=== PATIENT | male | born 1955 | race Two or more races ===

== ENCOUNTER 2019-04-05 00:52 | Inpatient (IN) | payer OTHER ==
[~2019-04-05] VITALS: Ht 167.6 cm; Wt 107.0 kg
[2019-04-05] VITALS (13 sets, daily range): BP systolic 131–164; BP diastolic 72–117
--- NOTE | 2019-04-05 01:05 | NUR ---
PT VICTORIA FROM HOME FOR ALOC; PT VERBALLY RESPONSIVE, PT ON MONITOR, VSS, PENDING MD JONES
[2019-04-05] MEDS ORDERED: ASPI-1169 PO (01:13)
[2019-04-05] MEDS ORDERED: ATOR40TA GT (01:18)
[2019-04-05] MEDS ORDERED: AMIO200T4 PO (01:18)
[2019-04-05] MEDS ORDERED: LEVO25TA7 PO (01:18)
[2019-04-05] MEDS ORDERED: HYDR-4384 PO (01:18)
[2019-04-05] MEDS ORDERED: DOCU100C36 PO (01:18)
[2019-04-05 01:19] LABS: BASOPHILS % (AUTO) 0.4 % (0.0-2.0); EOSINOPHILS % (AUTO) 1.2 % (0.0-6.0); HEMATOCRIT 30 % (39-51); HEMOGLOBIN 10.3 g/dL (13.5-17.5); LYMPHOCYTES # (AUTO) 0.9 /CMM (0.8-4.8); LYMPHOCYTES % (AUTO) 9.9 % (20.0-44.0); MEAN CORPUSCULAR HGB CONC 35 g/dl (31.0-36.0); MEAN CORPUSCULAR VOLUME 92 fL (80-96); MONOCYTES # (AUTO) 1.1 /CMM (0.1-1.30); MONOCYTES % (AUTO) 11.4 % (2.0-12.0); NEUTROPHILS # (AUTO) 7.1 /CMM (1.8-8.9); NEUTROPHILS % (AUTO) 77.1 % (43.0-81.0); PLATELET COUNT (AUTO) 456 /CMM (150-450); RED BLOOD CELL COUNT(AUTO) 3.27 MIL/uL (4.5-6.0); WHITE BLOOD COUNT (AUTO) 9.2 K/uL (4.3-11.0)
[2019-04-05 01:27] LABS: CALCIUM, SERUM 8.8 mg/dL (8.5-10.1); CREATININE 1.2 mg/dL (0.6-1.3); POTASSIUM 4.3 mmol/L (3.5-5.1)
[2019-04-05] MEDS ORDERED: IV NS 0.9% 500 ML BAG IV ONE (01:30)
[2019-04-05 01:33] LABS: ALBUMIN 3.3 g/dL (3.4-5.0); BILIRUBIN,DIRECT 0.1 mg/dL (0.0-0.2); BILIRUBIN,TOTAL 0.6 mg/dL (0.2-1.0); TOTAL PROTEIN, SERUM 6.8 g/dL (6.4-8.2)
[2019-04-05] MEDS ORDERED: AMIODARONE 150 MG/3 ML VIAL IV ONE ×2 (02:19→02:30)
--- NOTE | 2019-04-05 03:40 | NUR ---
NURSING SUP GAVE BED 113-1.
[2019-04-05] MEDS ORDERED: CEFTRIAXONE 1 G in IV D5W 50 ML IV STA (03:45)
--- NOTE | 2019-04-05 03:48 | NUR ---
UNABLE TO COLLECT URINE AT THIS TIME, AWARE.
--- NOTE | 2019-04-05 03:54 | NUR ---
REPORT GIVEN TO TIMOTHY SERRANO FOR SHARONA; PT WILL BE TRANSPORTED TO 1ST FLOOR VIA ACLS PROTOCOL
[2019-04-05] MEDS ORDERED: CEFTRIAXONE 1GM BAG (ER ONLY) 50 ML IV ONE (03:55)
[2019-04-05] MEDS ORDERED: MAGNESIUM HYDROXIDE 30 ML UDC PO PRN (04:00)
[2019-04-05] MEDS ORDERED: HYDROCODONE/APAP 5/325MG 1 EACH TABLET PO PRN (04:00)
[2019-04-05] MEDS ORDERED: ZOLPIDEM TARTRATE 5 MG TABLET PO PRN (04:00)
[2019-04-05] MEDS ORDERED: MAG HYDROX/AL HYDROX/SIMETH 30 ML UDC PO PRN (04:00)
[2019-04-05] MEDS ORDERED: ONDANSETRON HCL/PF 4 MG/2 ML VIAL IVP PRN (04:00)
[2019-04-05] MEDS ORDERED: ACETAMINOPHEN 325 MG TABLET PO PRN (04:00)
[2019-04-05] MEDS ORDERED: Z GUARD REMEDY 2 OZ OINT TP PRN (04:00)
--- NOTE | 2019-04-05 04:40 | NUR ---
PRODUCTION LINE ASSEMBLER ADMISSION NOTES, AT 0415 RECEIVED 63 MALE ADMITTED FROM ER VIA STRETCHER IN COMPANY OF 2 NURSES AND , ADMITTED UNDER DR ANDRADE, WITH ADMITTING DX AFIB AND ELEVATED CARDIAC ENZYMES, S/P CABG 2 WEEKS AGO, PATIENT A/O X2, USUALLY X4 PER , H/O HYPOTHYROIDISM, AFIB IN TELE MONITOR VS AT THIS TIME, 145/104, 116, 98.9, 18, 95% ROOM AIR, STATES NAME AND DATE OF [facility], DENIES CHEST PAIN OR DISCOMFORT AT AT THIS TIME, BREATHING EVEN AND UNLABORED, NO SOB./ACUTE DISTRESS AT THIS TIME, AT BEDSIDE, CALL LIGHT W/I REACH, WILL CONTINUE TO MONITOR CLOSELY, S/R OF BED UP. IV RIGHT AC 18, AND INSERTED AT NEW LINE IN RIGHT HAND 22G BOTH PATENT AND INTATC, WILL F/U WITH MD FOR FURTHER ORDERS.
[2019-04-05] MEDS ORDERED: LEVOFLOXACIN 500 MG /D5W 100ML 100 ML IV ONE (04:52)
[2019-04-05] MEDS: LEVOFLOXACIN 500 MG /D5W 100ML 500 MG in PREMIX 1 EA IV SCH (05:02)
--- NOTE | 2019-04-05 05:18 | NUR ---
RN SPOKE TO AT BEDSIDE, REVIEWED HOME MEDS LIST, COREG MISSED BY ER NURSE, MD SOMMER MADE AWARE, MD WITH NEW ORDER TO GIVE NOW FIRST DOSE OF COREG AND CONTINUE ORDERED. OK TO GIVE PO MEDICATION EVEN PT IS NPO PER MD.
[2019-04-05] MEDS: CARVEDILOL 6.25 MG TABLET PO SCH ×4 (05:22→21:24)
[2019-04-05] MEDS ORDERED: CARV6.25 PO (05:27)
[2019-04-05] MEDS: DOCUSATE SODIUM 100 MG CAPSULE PO SCH ×2 (06:34→21:24)
--- NOTE | 2019-04-05 07:00 | NUR ---
PATIENT SLEEPING AT THIS TIME, BUT RESPOND TO NAME, BREATHING EVEN AND UNLABORED, NO S/S OF ANY SOB/ACUTE DISTRESS OR DISCOMFORT, AT BEDSIDE, CONTINUE AFIB UNCONTROL IN THE TELE MONITOR, CALL LIGHT W/I REACH, WILL ENDORSE CONTINUITY OF CARE TO ONCOMING NURSE.
--- NOTE | 2019-04-05 07:15 | NUR ---
RN OPENING NOTES PATIENT IN BED ASLEEP, EASILY AROUSABLE BY NAME. AT BEDSIDE. NO URINE OUTPUT LAST NIGHT PER NOC SHIFT, NO BM WELL. HAS GENERALIZED EDEMA. ON TELE MONITOR, AFIB HR 110-120s. PATIENT IS NPO EXCEPT MEDS. HAS A RIGHT AC #20 AND RIGHT HAND #22, BOTH SALINE LOCKED. TROPONIN LEVEL IS STILL ELEVATED, 0.648. BED LOCKED AND IN LOWEST POSITION, CALL LIGHT WITHIN REACH. WILL CONTINUE TO MONITOR
[2019-04-05] MEDS: LEVOTHYROXINE SODIUM 25 MCG TABLET PO SCH ×2 (08:04→09:37)
[2019-04-05] MEDS: ASPIRIN 81 MG TAB.CHEW PO SCH ×2 (08:04→09:35)
[2019-04-05] MEDS: PANTOPRAZOLE 40 MG TABLET.DR PO SCH ×2 (08:04→09:34)
[2019-04-05] MEDS: ATORVASTATIN 40 MG TABLET GT SCH ×2 (08:04→09:35)
[2019-04-05] MEDS: AMIODARONE HCL 200 MG TABLET PO SCH ×2 (08:05→09:36)
--- NOTE | 2019-04-05 08:16 | NUR ---
RN NOTES PATIENT IS VERY LETHARGIC TO TAKE PO MEDS. HE IS RESPONSIVE AND WANTS ME TO COME BACK LATER. WILL TRY AGAIN LATER
--- NOTE | 2019-04-05 11:25 | NUR ---
RN NOTES AT BEDSIDE, CONCERNED THAT PATIENT HAS NOT BEEN URINATING SINCE ADMISSION LAST NIGHT. PATIENT HAS BEEN NPO AND NOT DRINKING ANY FLUIDS. CHECKED BLADDER VIA BLADDER SCAN, 38 ML. PATIENT STATES THAT HE DOES NOT FEEL THE URGE TO URINATE
[2019-04-05 12:09] LABS: MAGNESIUM 1.8 mg/dL (1.8-2.4); PHOSPHORUS 4.6 mg/dL (2.5-4.9)
--- NOTE | 2019-04-05 12:30 | NUR ---
RN NOTES PATIENT VERY LETHARGIC TO TAKE PO MEDS AT THIS TIME. MD AWARE. HE SAID TO HOLD MEDS FOR NOW.
[2019-04-05] MEDS: DILTIAZEM HCL CD 240 MG PO SCH ×2 (12:39→19:22)
[2019-04-05] MEDS: DIGOXIN 0.25 MG TABLET PO SCH ×2 (13:04→19:24)
--- NOTE | 2019-04-05 13:23 | NUR ---
RN NOTES DR ZENDEJAS AT BEDSIDE, AT BEDSIDE, TO CONTROL AFIB, MD RECOMMENDS ANTICOAGULANTS SUCH ASPIRIN AND LOVENOX. WILL NOT INCREASE AMIO AND DIG FOR RATE CONTROL. DR ZENDEJAS ORDERED EKG AND ECHO, AWARE. PATIENT STILL LETHARGIC AND WEAK
--- NOTE | 2019-04-05 15:30 | NUR ---
RN NOTES PATIENT WAS AWAKE, AND TALKING. TRIED TO ADMINISTER DIG AND AMIO PO. PATIENT WENT BACK TO SLEEP. WILL COME BACK LATER
[2019-04-05] MEDS: ENOXAPARIN SODIUM 120 MG/0.8 ML DISP.SYRIN SQ SCH ×2 (17:15→21:27)
--- NOTE | 2019-04-05 17:22 | NUR ---
RN NOTES AT BEDSIDE WAS WORRIED ABOUT THE PATIENT NOT HAVING URINE OUTPUT SINCE LAST NIGHT. KATHLEEN ORDERED 500ML IVF NS BOLUS. WILL CONTINUE TO MONITOR
[2019-04-05] MEDS ORDERED: IV NS 0.9% 500 ML IV ONE (17:30)
[2019-04-05 18:09] LABS: ABG BASE EXCESS -1.4 mmol/L; ABG OXYGEN SATURATION 97.2 % (92.0-98.5); ABG PCO2 33.4 mmHg (35.0-45.0); ABG PH 7.441 (7.350-7.450); ABG PO2 107.9 mmHg (75.0-100.0); AaDO2 52.3 mmHg; COHb 0.3 % (0.5-1.5); MetHb 0.6 % (0.0-1.5); O2Hb 96.3 % (94.0-97.0); SITE, ABG Right Radial; VENT MODE, BG NC 2L
--- NOTE | 2019-04-05 18:20 | NUR ---
RN NOTES KATHLEEN ORDERED AN MRI TODAY. DR HARVEY CAME TO SEE THE PATIENT AND DECIDED TO SEND THE PATIENT TO ICU FOR CLOSER OBSERVATION. AT BEDSIDE AWARE. TRANSFERRED TO ICU, VSS. NO ACUTE STRESS, NOR SOB. REPORT GIVEN AT BEDSIDE TO ICU NURSE.
--- NOTE | 2019-04-05 18:30 | NUR ---
RECEIVED PATIENT FROM TELE UNIT PER ORDERS FOR CLOSE NEURO OBSERVATION. PATIENT ADMITTED WITH AFIB RVR AND ALTERED LEVEL OF CONSCIOUSNESS. AFIB NOTED ON MONITOR; PER RN DID NOT GIVE CARDIZEM OR DIG PO PATIENT ALTERED; MESSAGE WITH DR ZENDEJAS TO F/U IF WANTED ANY IV ORDERS. AT THIS TIME HR 120'S-130'S. INMAN CATH INSERTED BLADDER SCANNER SHOWING MORE THAN 500ML IN BLADDER AND PER RN NO URINE OUTPUT SINCE ADMISSION. INMAN INSERTED WITH STERILE PROCEDURE AND URINE SAMPLE OBTAINED PER MD ORDER. PATIENT NON VERBAL WILL NOT OPEN EYES TO PAINFUL STIMULI. AT BEDSIDE. SAFETY, SKIN, ASPIRATION PRECAUTIONS IN PLACE AND WILL MONITOR.
--- NOTE | 2019-04-05 18:45 | NUR ---
PATIENT PASSED SWALLOW EVAL WITHOUT COMPLICATIONS. PO MEDICATIONS GIVEN
--- NOTE | 2019-04-05 19:02 | NUR ---
AT BEDSIDE. PER PATIENT HAD STARTED TO ACT STRANGE LATE FRIDAY. GENERALIZED HALLUCINATIONS, ACTING STRANGE LIKE THROWING TOILET PAPER ON FLOOR AND AT TIMES ANSWERING QUESTIONS "STRANGELY". PER SHE IS CONCERNED ABOUT A PSYCHOTIC BREAK BY THE WAY HE IS ACTING THIS IS VERY SIMILAR TO HIS MOTHER WHO HAD PSYCHOSIS. PATIENT IS NOW OPENING EYES INDEPENDENTLY 4MM REACTIVE TO LIGHT AND PATIENT A/OX4 LETHARGIC HOWEVER SOME ANSWERS ARE NOT IN RELATION TO QUESTIONS ASKED. PER NO NEW MEDICATIONS WERE STARTED AND NOTHING HE COULD OF TAKEN.
[2019-04-05] MEDS: ACETAMINOPHEN 650 MG/SUPP.RECT RC PRN (19:07)
[2019-04-05 19:18] LABS: APPEARANCE,URINE SL CLOUDY (CLEAR); BILIRUBIN,URINE 1+ (NEGATIVE); BLOOD, URINE NEGATIVE Ery/uL (NEGATIVE); COLOR,URINE ORANGE (YELLOW); KETONES,URINE 1+ (NEGATIVE); LEUKOCYTE ESTERASE ,URINE NEGATIVE (NEGATIVE); NITRITE, URINE NEGATIVE (NEGATIVE); PH,URINE 5.5 (5.0-8.0); PROTEIN,URINE TRACE mg/dl (NEGATIVE); UGLUCOSE NEGATIVE (NEGATIVE); UROBILINOGEN,URINE 0.2 EU/dL (0.2)
--- NOTE | 2019-04-05 19:20 | NUR ---
CARE ENDORSED TO RN FOR SHARONA. PATIENT TOLERATED PO MEDICATIONS. SAFETY, SKIN, ASPIRATION PRECAUTIONS IN PLACE.
[2019-04-05] MEDS ORDERED: ENOXAPARIN SODIUM 60 MG/0.6 ML DISP.SYRIN SQ ONE (21:26)
--- NOTE | 2019-04-05 21:29 | NUR ---
RN LOVENOX 120 DUE AT 2100 NOT AVAILABLE AT [facility], ADELINA, CHARGE [facility] OVERRIDED FROM [facility] LOVENOX 60 X2, VERIFIED DOSE AND MEDICATION PRIOR ADMIN BY MAGGIE MCHUGH.
[2019-04-05 21:56] LABS: BACTERIA,URINE Few /HPF (None Seen); RBC,URINE 0-2 /HPF (0-2); SQUAMOUS EPITHELIAL CELL,UR Few /HPF (None Seen); WBC,URINE 0-2 /HPF (0-3)
[2019-04-06] VITALS (32 sets, daily range): BP systolic 109–185; BP diastolic 77–117
[2019-04-06] MEDS: LEVOFLOXACIN 500 MG /D5W 100ML 500 MG in PREMIX 1 EA IV SCH (03:35)
[2019-04-06 05:10] LABS: BASOPHILS % (AUTO) 0.5 % (0.0-2.0); EOSINOPHILS % (AUTO) 1.1 % (0.0-6.0); HEMATOCRIT 27 % (39-51); HEMOGLOBIN 9.6 g/dL (13.5-17.5); LYMPHOCYTES # (AUTO) 0.9 /CMM (0.8-4.8); LYMPHOCYTES % (AUTO) 10.9 % (20.0-44.0); MEAN CORPUSCULAR HGB CONC 35 g/dl (31.0-36.0); MEAN CORPUSCULAR VOLUME 91 fL (80-96); MONOCYTES # (AUTO) 0.8 /CMM (0.1-1.30); MONOCYTES % (AUTO) 9.8 % (2.0-12.0); NEUTROPHILS # (AUTO) 6.7 /CMM (1.8-8.9); NEUTROPHILS % (AUTO) 77.7 % (43.0-81.0); PLATELET COUNT (AUTO) 406 /CMM (150-450); RED BLOOD CELL COUNT(AUTO) 3.01 MIL/uL (4.5-6.0); WHITE BLOOD COUNT (AUTO) 8.6 K/uL (4.3-11.0)
[2019-04-06 05:35] LABS: THYROID STIMULATING HORMONE 7.209 uIU/mL (0.358-3.74)
[2019-04-06 05:41] LABS: ALBUMIN 2.7 g/dL (3.4-5.0); BILIRUBIN,TOTAL 0.5 mg/dL (0.2-1.0); CALCIUM, SERUM 8.3 mg/dL (8.5-10.1); CREATININE 0.9 mg/dL (0.6-1.3); MAGNESIUM 1.8 mg/dL (1.8-2.4); PHOSPHORUS 3.9 mg/dL (2.5-4.9); POTASSIUM 4.1 mmol/L (3.5-5.1)
--- NOTE | 2019-04-06 07:56 | NUR ---
WOUND CARE CONSULT: PT PRESENTS WITH HEALED SCAR TO CHEST AND LEFT MEDIAL LEG, SOME REDNESS TO AXILLAE, PRESENT ON ADMISSION. DISCUSSED SKIN PROTECTION WITH NURSING STAFF. SKIN TO BE KEPT CLEAN AND DRY. PT REFUSED TO TURN FOR FULL SKIN ASSESSMENT OF BACK AND SACRUM/BUTTOCKS. PT CONTINENT AT THIS TIME WITH INMAN CATH. WILL SEE PRN.
--- NOTE | 2019-04-06 08:00 | NUR ---
ICU/RN AM SHIFT INITIAL NOTES RECEIVED PT ASLEEP IN BED, EASILY AROUSED, PT A/O X 4 WITH PERIODS OF CONFUSION. DENIES ANY SYMPTOMS AT THIS TIME, ANSWERS QUESTIONS IN SHORT QUICK RESPONSE BUT APPROPRIATE. ON 3L O2 VIA N/C SATURATING @ 97%, LUNG SOUNDS CLEAR, RESPIRATIONS EVEN AND UNLABORED. ON TELE WITH UNCONTROLLED A-FIB, HR 105. IV SITES FLUSHED, PATENT WITH NO S/S OF INFECTION, SL. INMAN CATHETER INTACT WITH YELLOW URINE OUTPUT. PT ON NPO EXCEPT MEDS. SCHEDULED AM MEDS TO BE GIVEN. CL WITHIN REACHED AND SAFETY MAINTAINED. ON GOING MONITORING.
[2019-04-06] MEDS: ENOXAPARIN SODIUM 120 MG/0.8 ML DISP.SYRIN SQ SCH ×2 (09:26→21:26)
[2019-04-06] MEDS: ASPIRIN 81 MG TAB.CHEW PO SCH (09:27)
[2019-04-06] MEDS: PANTOPRAZOLE 40 MG TABLET.DR PO SCH (09:28)
[2019-04-06] MEDS: LEVOTHYROXINE SODIUM 25 MCG TABLET PO SCH (09:28)
[2019-04-06] MEDS: CARVEDILOL 6.25 MG TABLET PO SCH ×4 (09:28→23:29)
[2019-04-06] MEDS: AMIODARONE HCL 200 MG TABLET PO SCH (09:28)
[2019-04-06] MEDS: ATORVASTATIN 40 MG TABLET GT SCH (09:28)
[2019-04-06] MEDS: DILTIAZEM HCL CD 240 MG PO SCH (09:29)
[2019-04-06] MEDS: NITROGLYCERIN 30 GM TUBE TP SCH ×2 (09:59→21:27)
--- NOTE | 2019-04-06 12:00 | NUR ---
ICU/FILM RENTAL CLERK OF CARE PT ENDORSED TO ICU NURSE YANG TO CONTINUE CARE.
--- NOTE | 2019-04-06 12:15 | NUR ---
RN NOTES RECEIVED REPORT FOR PT, PT IN BED RESTING COMFORTABLY, A/0 X3, RESPIRATIONS EVEN AND UNLABORED, DENIES ANY PAIN OR DISCOMFORT AT THIS TIME. IV ACESS TO RIGHT AC AND RIGHT HAND PATENT AND INTACT, NO REDNESS OR INFILTRATION NOTED. PT NOT SWALLOWING OWN SECRETIONS SPITS OUT, ABLE TO FOLLOW DIRECTIONS, BUE AND BLE EQUAL IN STRENGTH, FOLLOWED BY NEUROLOGIST. PATIENT KEPT CLEAN DRY AND COMFORTABLE, CALL LIGHT WITHIN EASY REACH WILL CONTINUE TO MONITOR
[2019-04-06] MEDS: DIGOXIN 0.25 MG TABLET PO SCH (13:21)
[2019-04-06] MEDS ORDERED: IV NS 0.9% 250 ML IV ONE (18:26)
[2019-04-06] MEDS ORDERED: IOHEXOL-350 100 ML VIAL IV ONE (18:26)
[2019-04-06] MEDS ORDERED: CT SWABBABLE VALVE TRANS SET 1 EA INFUS.SET MC ONE (18:26)
--- NOTE | 2019-04-06 19:15 | NUR ---
RAILROAD COOK RCD PT W/DX AFIB WR/RVR; PT IS AWAKE MUMBLING WITH FOAMY SALIVA AT THE MOUTH; ORIENTED ONLY TO NAME AT THIS TIME. UNCONTROLLED AFIB ON MONITOR W/ELEVATED BP. DIMINISHED LUNG SOUNDS ON O2 3L NC. INMAN CATH DRAINING ADEQUATE AMOUNT OF YELLOW URINE WITH SEDIMENT. PT FACE FLUSHED AT THIS TIME. CHEST INCISION NOTED. LEFT KNEE/THIGH GRAFT SITE WITH BRUISING TO BACK SIDE OF LEG. PT NPO X MEDS; PENDING SWALLOW EVAL. PT WITH ELEVATED BP
--- NOTE | 2019-04-06 19:30 | NUR ---
RN NOTES PT TAKEN TO CTA OF BRAIN AND CAROTID ORDERED BY NEUROLOGY AT 1845 RETURNED TO UNIT AT 1905 UPON RETURN NOTED PT WITH INCREASED HEART RATE AND BLOOD PRESSURE. DR. BENDER, ONCALL FOR [facility], CALLED TO NOTIFY OF PT'S STATUS, PER DR. BENDER RN TO CALL DR. ZENDEJAS, PSYCHIATRY INSTRUCTOR FOLLOWING, AND NOTIFY, NO FURTHER ORDERS RECEIVED. ADVISORY SOFTWARE ENGINEER RN GIVEN REPORT AND NOTIFIED OF ORDER FOR FOLLOW UP. PT IN BED RESTING COMFORTABLY, A/0 X3, RESPIRATIONS EVEN AND UNLABORED, DENIES ANY PAIN OR DISCOMFORT AT THIS TIME. IV ACESS TO RIGHT AC AND RIGHT HAND PATENT AND INTACT, NO REDNESS OR INFILTRATION NOTED. PT NOT SWALLOWING OWN SECRETIONS SPITS OUT,SUCTION PRN.PT ABLE TO FOLLOW DIRECTIONS, BUE AND BLE EQUAL IN STRENGTH, FOLLOWED BY NEUROLOGIST, CTA OF BRAIN AND CAROTID DONE ORDERED AWAITING RESULTS. PATIENT KEPT CLEAN DRY AND COMFORTABLE, ENDORSED TO NEXT SHIFT FOR CONTINUITY OF CARE AND FOLLOW UP.
--- NOTE | 2019-04-06 19:35 | NUR ---
MAIL FORWARDING SYSTEM MARKUP CLERK RCD PT W/VITAL SIGNS HR 132 BP 165/107 W/ORDERS FROM PMD TO CALL DR ZENDEJAS; CALL PLACED TO DR ZENDEJAS W/NEW ORDERS RCD. CONTINUE TO MONITOR.
--- NOTE | 2019-04-06 20:00 | NUR ---
LAVATORY ATTENDANT PT CONTINUES MUMBLING CALLING OUT 'S NAME.
[2019-04-06] MEDS: CLONIDINE HCL 0.3 MG/24H PTWK 1 EA PATCH TD SCH (20:19)
--- NOTE | 2019-04-06 21:00 | NUR ---
ASSISTANT PROFESSOR OF MARINE BIOLOGY WILL PLACE SCDS ONCE AVAILABLE.
--- NOTE | 2019-04-06 21:20 | NUR ---
BEAM DOFFER PT NOTED WITH TEMP 99; TYLENOL OR GIVEN. PT LETHARGIC UNABLE TO SWALLOW PO MEDS.
[2019-04-06] MEDS: ACETAMINOPHEN 650 MG/SUPP.RECT RC PRN (21:26)
--- NOTE | 2019-04-06 21:30 | NUR ---
SEMICONDUCTOR TECHNICIAN UNABLE TO ADMINISTER PO MEDS PT IS LETHARGIC AT THIS TIME. CONTINUE TO MONITOR.
[2019-04-06] MEDS: DOCUSATE SODIUM 100 MG CAPSULE PO SCH (21:37)
--- NOTE | 2019-04-06 23:30 | NUR ---
CODING TECH PT FULLY AWAKE AT THIS TIME ABLE TO MAKE NEEDS KNOWN. PT REMAINS WITH ELEVATED BP. DENIES PAIN. PT ABLE TO SWALLOW AT THIS TIME. COREG 12.5 P GIVEN WITH WATER. PT TOLERATED WELL. CONTINUE TO MONITOR.
[2019-04-07] VITALS (31 sets, daily range): BP systolic 87–157; BP diastolic 52–98
[2019-04-07] MEDS: LEVOFLOXACIN 500 MG /D5W 100ML 500 MG in PREMIX 1 EA IV SCH (04:00)
[2019-04-07] MEDS: IV NS 0.9% 250 ML IV PRN (04:00)
[2019-04-07 04:44] LABS: BASOPHILS # (AUTO) 0.1 /CMM (0.0-0.2); BASOPHILS % (AUTO) 0.6 % (0.0-2.0); EOSINOPHILS % (AUTO) 0.7 % (0.0-6.0); HEMATOCRIT 27 % (39-51); HEMOGLOBIN 9.8 g/dL (13.5-17.5); LYMPHOCYTES # (AUTO) 0.7 /CMM (0.8-4.8); LYMPHOCYTES % (AUTO) 8.4 % (20.0-44.0); MEAN CORPUSCULAR HGB CONC 36 g/dl (31.0-36.0); MEAN CORPUSCULAR VOLUME 91 fL (80-96); MONOCYTES # (AUTO) 0.8 /CMM (0.1-1.30); MONOCYTES % (AUTO) 9.1 % (2.0-12.0); NEUTROPHILS # (AUTO) 7.2 /CMM (1.8-8.9); NEUTROPHILS % (AUTO) 81.2 % (43.0-81.0); PLATELET COUNT (AUTO) 469 /CMM (150-450); RED BLOOD CELL COUNT(AUTO) 2.98 MIL/uL (4.5-6.0); WHITE BLOOD COUNT (AUTO) 8.8 K/uL (4.3-11.0)
[2019-04-07 04:59] LABS: ALBUMIN 2.7 g/dL (3.4-5.0); BILIRUBIN,TOTAL 0.5 mg/dL (0.2-1.0); CALCIUM, SERUM 8.7 mg/dL (8.5-10.1); CREATININE 0.9 mg/dL (0.6-1.3); MAGNESIUM 1.8 mg/dL (1.8-2.4); PHOSPHORUS 4.1 mg/dL (2.5-4.9); POTASSIUM 4.4 mmol/L (3.5-5.1); TOTAL PROTEIN, SERUM 6.1 g/dL (6.4-8.2)
[2019-04-07] MEDS ORDERED: RIVAROXABAN 10 MG TABLET PO SCH ×2 (08:00→17:00)
[2019-04-07] MEDS: LEVOTHYROXINE SODIUM 25 MCG TABLET PO SCH (08:26)
[2019-04-07] MEDS: FUROSEMIDE 40 MG/4 ML VIAL IV SCH ×3 (08:27→16:50)
[2019-04-07] MEDS: DILTIAZEM HCL CD 240 MG PO SCH (08:27)
[2019-04-07] MEDS: ASPIRIN 81 MG TAB.CHEW PO SCH (08:27)
[2019-04-07] MEDS: ATORVASTATIN 40 MG TABLET GT SCH (08:27)
[2019-04-07] MEDS: PANTOPRAZOLE 40 MG TABLET.DR PO SCH (08:27)
[2019-04-07] MEDS: AMIODARONE HCL 200 MG TABLET PO SCH (08:28)
[2019-04-07] MEDS: VALSARTAN 80 MG TABLET PO SCH (08:28)
[2019-04-07] MEDS: NITROGLYCERIN 30 GM TUBE TP SCH ×2 (08:37→21:09)
[2019-04-07] MEDS ORDERED: CARVEDILOL 6.25 MG TABLET PO SCH (09:00)
[2019-04-07] MEDS: CARVEDILOL 12.5 MG TABLET PO SCH ×2 (09:08→21:09)
[2019-04-07] MEDS ORDERED: METOPROLOL TARTRATE INJ 5 MG/5 ML AMPUL IVP ONE (10:00)
[2019-04-07] MEDS: RIVAROXABAN 10 MG TABLET PO SCH (10:06)
[2019-04-07] MEDS: DIGOXIN 0.25 MG TABLET PO SCH (12:07)
[2019-04-07] MEDS ORDERED: IOHEXOL-350 100 ML VIAL IV ONE (13:01)
[2019-04-07] MEDS ORDERED: IV NS 0.9% 250 ML IV ONE (13:02)
[2019-04-07] MEDS ORDERED: CT SWABBABLE VALVE TRANS SET 1 EA INFUS.SET MC ONE (13:02)
--- NOTE | 2019-04-07 13:30 | NUR ---
ICU/RN: Spoke with Dr Worthington; informed pt still A-fib in 110's. Per MD reschedule CTA for tomorrow.
--- NOTE | 2019-04-07 19:40 | NUR ---
RN NOTE: RECEIVED PT ON BED ALERT AND ORIENTED X2 WITH EPISODES OF CONFUSION. ABLE TO MAKE NEEDS KNOWN. NO APPARENT DISTRESS NOTED. NO COMPLAINTS OF PAIN OR DISCOMFORT AT THIS TIME. ON 3LPM NASAL CANNULA, BREATHING EVEN AND UNLABORED WITH NORMAL RESPIRATIONS. ON BEDSIDE MONITOR AFIB CONTROLLED HR 116BPM. INMAN CATH INTACT AND PATENT, DRAINING WELL. IV ON RIGHT ANTECUBITAL #20 AND RIGHT HAND #22 INTACT AND PATENT, FLUSHING WELL. KEPT CLEAN, DRY AND COMFORTABLE. SAFETY AND FALL PRECAUTIONS OBSERVED AND MAINTAINED. WILL CONTINUE TO MONITOR PT.
[2019-04-07] MEDS: DOCUSATE SODIUM 100 MG CAPSULE PO SCH (21:09)
[2019-04-08] VITALS (27 sets, daily range): BP systolic 93–158; BP diastolic 42–99
[2019-04-08] MEDS: LEVOFLOXACIN 500 MG /D5W 100ML 500 MG in PREMIX 1 EA IV SCH (03:19)
[2019-04-08] MEDS: LEVOFLOXACIN (500MG) 500 MG TABLET PO SCH (04:00)
[2019-04-08 04:53] LABS: BASOPHILS % (AUTO) 0.5 % (0.0-2.0); EOSINOPHILS % (AUTO) 1.2 % (0.0-6.0); HEMATOCRIT 29 % (39-51); LYMPHOCYTES # (AUTO) 0.8 /CMM (0.8-4.8); LYMPHOCYTES % (AUTO) 10.9 % (20.0-44.0); MEAN CORPUSCULAR HGB CONC 35 g/dl (31.0-36.0); MEAN CORPUSCULAR VOLUME 91 fL (80-96); MONOCYTES # (AUTO) 0.8 /CMM (0.1-1.30); NEUTROPHILS # (AUTO) 5.6 /CMM (1.8-8.9); NEUTROPHILS % (AUTO) 76.4 % (43.0-81.0); PLATELET COUNT (AUTO) 466 /CMM (150-450); RED BLOOD CELL COUNT(AUTO) 3.17 MIL/uL (4.5-6.0); WHITE BLOOD COUNT (AUTO) 7.4 K/uL (4.3-11.0)
[2019-04-08 05:32] LABS: ALBUMIN 2.6 g/dL (3.4-5.0); BILIRUBIN,TOTAL 0.4 mg/dL (0.2-1.0); CALCIUM, SERUM 8.4 mg/dL (8.5-10.1); CREATININE 1.1 mg/dL (0.6-1.3); MAGNESIUM 1.6 mg/dL (1.8-2.4); PHOSPHORUS 4.1 mg/dL (2.5-4.9); POTASSIUM 3.2 mmol/L (3.5-5.1)
--- NOTE | 2019-04-08 06:34 | NUR ---
RN NOTE: NO CHANGES NOTED THROUGHOUT THE SHIFT. NO APPARENT DISTRESS NOTED. DENIES PAIN AND DISCOMFORT AT THIS TIME. ON 3LPM NASAL CANNULA, BREATHING EVEN AND UNLABORED WITH NORMAL RESPIRATIONS. INMAN CATH INTACT AND PATENT, DRAINED 600ML OF CLEAR URINE OUTPUT. IV ON RIGHT ANTECUBITAL #20 AND RIGHT HAND #22 INTACT AND PATENT, FLUSHING WELL. CALL LIGHT PLACED WITHIN REACH. KEPT CLEAN, DRY AND COMFORTABLE. SAFETY AND FALL PRECAUTIONS OBSERVED AND MAINTAINED. WILL ENDORSE TO DAY SHIFT RN FOR CONTINUITY OF CARE.
--- NOTE | 2019-04-08 07:30 | NUR ---
FRUIT AND VEGETABLE CLASSER AM NOTE: RECEIVED PT IN BED,ALERT AND ORIENTED X2 WITH EPISODES OF CONFUSION. ABLE TO MAKE NEEDS KNOWN. ON 3L O2 VIA NASAL CANULA, BREATHING EVEN AND UNLABORED WITH NORMAL RESPIRATIONS.NO APPARENT DISTRESS NOTED. NO COMPLAINTS OF PAIN OR DISCOMFORT AT THIS TIME. ON BEDSIDE MONITOR AFIB CONTROLLED HR 117BPM. IV ON RIGHT ANTECUBITAL #20 AND RIGHT HAND #22 INTACT AND PATENT, FLUSHES SITE CLEAR. INMAN CATH INTACT AND PATENT, DRAINING TO GRAVITY, YELLOW COLORED URINE, ADEQUATE AMOUNT, CLEAN, DRY AND COMFORTABLE. SAFETY AND FALL PRECAUTIONS OBSERVED AND MAINTAINED. CALL LIGHT WITHIN REACH. WILL TURN AND REPOSITION Q 2 HOURS . NEEDS ANTICIPATED. WILL CONTINUE TO MONITOR PT.
[2019-04-08] MEDS: PANTOPRAZOLE 40 MG TABLET.DR PO SCH (07:53)
[2019-04-08] MEDS: DILTIAZEM HCL CD 240 MG PO SCH (08:10)
[2019-04-08] MEDS: AMIODARONE HCL 200 MG TABLET PO SCH (08:10)
[2019-04-08] MEDS: ATORVASTATIN 40 MG TABLET GT SCH (08:10)
[2019-04-08] MEDS: ASPIRIN 81 MG TAB.CHEW PO SCH (08:10)
[2019-04-08] MEDS: VALSARTAN 80 MG TABLET PO SCH (08:10)
[2019-04-08] MEDS: CARVEDILOL 12.5 MG TABLET PO SCH ×2 (08:11→21:39)
[2019-04-08] MEDS: FUROSEMIDE 100 MG/10 ML VIAL IV SCH ×3 (08:13→16:37)
[2019-04-08] MEDS: NITROGLYCERIN 30 GM TUBE TP SCH ×2 (08:14→21:36)
[2019-04-08] MEDS: POTASSIUM CHLORIDE 20 MEQ TAB.PRT.SR PO SCH ×3 (08:14→10:00)
[2019-04-08] MEDS: Magnesium 1GM/D5W 100ML PREMIX 100 ML IV SCH ×2 (08:14→09:18)
[2019-04-08] MEDS: LEVOTHYROXINE SODIUM 100 MCG TABLET PO SCH (08:26)
--- NOTE | 2019-04-08 09:30 | NUR ---
OUTSIDE PRODUCTION INSPECTOR NOTES DUE MEDS GIVEN
--- NOTE | 2019-04-08 11:30 | NUR ---
VP INTEGRATION NOTES MAGNESIUM IV 2 BAGS COMPLETED.
[2019-04-08] MEDS: DIGOXIN 0.25 MG TABLET PO SCH (13:18)
[2019-04-08] MEDS: SOD FERRIC GLUC 125 MG in IV NS 0.9% 100 ML IV SCH (13:59)
[2019-04-08] MEDS ORDERED: POTASSIUM CHLORIDE 20 MEQ TAB.PRT.SR PO SCH (14:00)
--- NOTE | 2019-04-08 14:00 | NUR ---
SUPERVISING FILM OR VIDEOTAPE EDITOR NOTES KDUR 3 TABLETS COMPLETED
[2019-04-08] MEDS: RIVAROXABAN 10 MG TABLET PO SCH (16:36)
[2019-04-08] MEDS: IV NS 0.9% 250 ML IV PRN (18:42)
--- NOTE | 2019-04-08 18:52 | NUR ---
SHELL SIEVE OPERATOR CLOSING NOTE: PT IN BED,RESTING, AT BEDSIDE, ALERT AND ORIENTED X2 WITH EPISODES OF CONFUSION. ABLE TO MAKE NEEDS KNOWN. ON 3L O2 VIA NASAL CANULA, BREATHING EVEN AND UNLABORED WITH NORMAL RESPIRATIONS.NO APPARENT DISTRESS NOTED. NO COMPLAINTS OF PAIN OR DISCOMFORT AT THIS TIME. ON BEDSIDE MONITOR AFIB CONTROLLED HR LOWER 1OOs BPM. IV ON RIGHT ANTECUBITAL #18 FLUSHES SITE CLEAR.NS AT KVO, INMAN CATH INTACT AND PATENT, DRAINING TO GRAVITY, YELLOW COLORED URINE, ADEQUATE AMOUNT, 2395 ML OUTPUT. CLEAN, DRY AND COMFORTABLE. SAFETY AND FALL PRECAUTIONS OBSERVED AND MAINTAINED. CALL LIGHT WITHIN REACH. TURNED AND REPOSITIONED Q 2 HOURS . NEEDS ATTENDED AND MET. NO OTHER SIGNIFICANT CHANGES NOTED. WILL ENDORSE TO NEXT SHIFT FOR SHARONA. CTCA CANCELLED BY DR. ZENDEJAS EARLIER.
--- NOTE | 2019-04-08 19:45 | NUR ---
EMBOSSER OPERATOR INITIAL NOTE: RECEIVED PT IN BED,ALERT AND ORIENTED X2 WITH EPISODES OF CONFUSION, PER AM RN. ABLE TO MAKE NEEDS KNOWN. ON 3L O2 VIA NASAL CANULA, BREATHING EVEN AND UNLABORED WITH NORMAL RESPIRATIONS.NO APPARENT DISTRESS NOTED. NO COMPLAINTS OF PAIN OR DISCOMFORT AT THIS TIME. ON BEDSIDE MONITOR AFIB CONTROLLED HR 120'S BPM. IV ON RIGHT ANTECUBITAL #20 AND RIGHT HAND #22 INTACT AND PATENT, FLUSHES SITE CLEAR. INMAN CATH INTACT AND PATENT, DRAINING TO GRAVITY, YELLOW COLORED URINE, ADEQUATE AMOUNT, CLEAN, DRY AND COMFORTABLE. SAFETY AND FALL PRECAUTIONS OBSERVED AND MAINTAINED. CALL LIGHT WITHIN REACH. WILL TURN AND REPOSITION Q 2 HOURS . NEEDS ANTICIPATED. WILL CONTINUE TO MONITOR PT.
[2019-04-08] MEDS: DOCUSATE SODIUM 100 MG CAPSULE PO SCH (21:38)
--- NOTE | 2019-04-08 21:53 | NUR ---
STORE SALES MANAGER NOTE LEVAQUIN 500 MG PO SCHEDULED FOR 0400 AM WAS NOT GIVEN, IV LEVAQUIN WAS GIVEN, KAT EVANS SPOKE TO PHARMACY TO VERIFY ORDER. WILL ENDORSE TO AM RN TO F/U.
[2019-04-09] VITALS (27 sets, daily range): BP systolic 81–151; BP diastolic 47–99
[2019-04-09] MEDS: LEVOFLOXACIN (500MG) 500 MG TABLET PO SCH (04:00)
[2019-04-09 04:51] LABS: BASOPHILS % (AUTO) 0.5 % (0.0-2.0); EOSINOPHILS % (AUTO) 1.9 % (0.0-6.0); HEMATOCRIT 29 % (39-51); HEMOGLOBIN 10.1 g/dL (13.5-17.5); LYMPHOCYTES % (AUTO) 13.1 % (20.0-44.0); MEAN CORPUSCULAR HGB CONC 35 g/dl (31.0-36.0); MEAN CORPUSCULAR VOLUME 91 fL (80-96); MONOCYTES # (AUTO) 0.9 /CMM (0.1-1.30); MONOCYTES % (AUTO) 11.9 % (2.0-12.0); NEUTROPHILS # (AUTO) 5.8 /CMM (1.8-8.9); NEUTROPHILS % (AUTO) 72.6 % (43.0-81.0); PLATELET COUNT (AUTO) 461 /CMM (150-450); RED BLOOD CELL COUNT(AUTO) 3.22 MIL/uL (4.5-6.0)
[2019-04-09] MEDS ORDERED: LEVOFLOXACIN 500 MG /D5W 100ML 100 ML IV ONE (04:58)
[2019-04-09] MEDS: LEVOFLOXACIN 500 MG /D5W 100ML 500 MG in PREMIX 1 EA IV SCH (04:59)
[2019-04-09 05:02] LABS: ALBUMIN 2.7 g/dL (3.4-5.0); BILIRUBIN,TOTAL 0.4 mg/dL (0.2-1.0); CALCIUM, SERUM 8.4 mg/dL (8.5-10.1); CREATININE 1.4 mg/dL (0.6-1.3); MAGNESIUM 1.7 mg/dL (1.8-2.4); PHOSPHORUS 4.5 mg/dL (2.5-4.9); POTASSIUM 3.6 mmol/L (3.5-5.1)
--- NOTE | 2019-04-09 05:53 | NUR ---
HOG FEEDER NOTE STOKE MED NOT GIVEN.
--- NOTE | 2019-04-09 06:19 | NUR ---
SECURITY AND PRIVACY CONSULTANT CLOSING NOTE: ENDORSED PT IN BED,ALERT AND ORIENTED X2 WITH EPISODES OF CONFUSION. ABLE TO MAKE NEEDS KNOWN. ON 3L O2 VIA NASAL CANULA, BREATHING EVEN AND UNLABORED WITH NORMAL RESPIRATIONS.NO APPARENT DISTRESS NOTED. NO COMPLAINTS OF PAIN OR DISCOMFORT AT THIS TIME. ON BEDSIDE MONITOR AFIB CONTROLLED HR 120'S BPM. IV ON RIGHT ANTECUBITAL #20 AND RIGHT HAND #22 INTACT AND PATENT, FLUSHES SITE CLEAR. INMAN CATH INTACT AND PATENT, DRAINING TO GRAVITY, YELLOW COLORED URINE, ADEQUATE AMOUNT, CLEAN, DRY AND COMFORTABLE. SAFETY AND FALL PRECAUTIONS OBSERVED AND MAINTAINED. CALL LIGHT WITHIN REACH. WILL TURN AND REPOSITION Q 2 HOURS . NEEDS ANTICIPATED. WILL CONTINUE TO MONITOR PT.
[2019-04-09] MEDS: LEVOTHYROXINE SODIUM 100 MCG TABLET PO SCH (07:30)
[2019-04-09] MEDS ORDERED: POTASSIUM CHLORIDE 20 MEQ TAB.PRT.SR PO SCH (08:00)
[2019-04-09] MEDS ORDERED: acetaZOLAMIDE SODIUM 500 MG/VIAL VIAL IV ONE (08:30)
[2019-04-09] MEDS: Magnesium 1GM/D5W 100ML PREMIX 100 ML IV SCH ×2 (08:30→11:08)
[2019-04-09] MEDS: CARVEDILOL 12.5 MG TABLET PO SCH ×2 (09:00→21:35)
[2019-04-09] MEDS: ATORVASTATIN 40 MG TABLET GT SCH (09:01)
[2019-04-09] MEDS: PANTOPRAZOLE 40 MG TABLET.DR PO SCH (09:01)
[2019-04-09] MEDS: AMIODARONE HCL 200 MG TABLET PO SCH (09:04)
[2019-04-09] MEDS: ASPIRIN 81 MG TAB.CHEW PO SCH (09:05)
[2019-04-09] MEDS: DILTIAZEM HCL CD 240 MG PO SCH (09:05)
[2019-04-09] MEDS: VALSARTAN 80 MG TABLET PO SCH (09:05)
[2019-04-09] MEDS: NITROGLYCERIN 30 GM TUBE TP SCH ×2 (09:06→21:59)
[2019-04-09] MEDS: DIGOXIN 0.25 MG TABLET PO SCH (13:49)
[2019-04-09] MEDS: SOD FERRIC GLUC 125 MG in IV NS 0.9% 100 ML IV SCH (13:50)
--- NOTE | 2019-04-09 16:55 | NUR ---
FAMILY REQUEST TO SPEAK TO NEUROLOGIST REGARDING NEURO STATUS-[facility] . NEW MED ORDER RECEIVED FROM . PT/OT EVAL AND TREAT IN AM.
[2019-04-09] MEDS: RIVAROXABAN 10 MG TABLET PO SCH (17:00)
[2019-04-09] MEDS: MODAFINIL 100 MG TABLET PO SCH (18:50)
--- NOTE | 2019-04-09 19:45 | NUR ---
RECEIVED PATIENT FROM ICU VIA BED. PATIENT AO X 3, ABLE TO MAKE NEED KNOWN. NO ACUTE DISTRESS NOTED. DENIES ANY PAIN AT THIS TIME. TELE READING AFIB. INMAN CATH PATENT, INTACT; DRAINING CLEAR, DARK YELLOW URINE. IV SITE PATENT, INTACT; FLUSHED. SAFETY REMINDERS GIVEN. ON LOW BED WITH BILATERAL UPPER SIDE RAILS UP. CALL OLIVARES WITHIN EASY REACH. WILL CONTINUE TO MONITOR.
[2019-04-09] MEDS: DOCUSATE SODIUM 100 MG CAPSULE PO SCH (21:35)
[2019-04-10] VITALS (7 sets, daily range): BP systolic 90–138; BP diastolic 53–89
--- NOTE | 2019-04-10 03:00 | NUR ---
DR. BENDER MADE AWARE THAT PATIENT'S TELE READING IS UNCONTROLLED AFIB HR 120S. HR HAS GONE UP TO 140S AT TIMES. DR. BENDER ORDERED CARDIZEM 30 MG PO X 1 AND CARDIZEM EXTENDED RELEASE 300 MG PO DAILY; NOTED AND CARRIED OUT.
[2019-04-10] MEDS ORDERED: DILTIAZEM HCL 30 MG TABLET PO ONE (04:00)
--- NOTE | 2019-04-10 06:00 | NUR ---
PATIENT ASLEEP, EASILY AROUSABLE. RESPIRATIONS EVEN. NO SIGNS OF PAIN NOTED. TELE READING CONTROLLED AFIB HR 86. DUE MEDS GIVEN WITH NO ASE NOTE. NEEDS ATTENDED. KEPT CLEAN, DRY, AND COMFORTABLE. SAFETY PRECAUTIONS AND COMFORT MEASURES IN PLACE. WILL GIVE REPORT TO DAY SHIFT FOR CONTINUITY OF CARE.
[2019-04-10 07:09] LABS: BASOPHILS % (AUTO) 0.6 % (0.0-2.0); EOSINOPHILS % (AUTO) 1.9 % (0.0-6.0); HEMATOCRIT 30 % (39-51); HEMOGLOBIN 10.4 g/dL (13.5-17.5); LYMPHOCYTES # (AUTO) 0.6 /CMM (0.8-4.8); LYMPHOCYTES % (AUTO) 8.6 % (20.0-44.0); MEAN CORPUSCULAR HGB CONC 36 g/dl (31.0-36.0); MEAN CORPUSCULAR VOLUME 89 fL (80-96); MONOCYTES # (AUTO) 0.7 /CMM (0.1-1.30); MONOCYTES % (AUTO) 10.3 % (2.0-12.0); NEUTROPHILS # (AUTO) 5.3 /CMM (1.8-8.9); NEUTROPHILS % (AUTO) 78.6 % (43.0-81.0); PLATELET COUNT (AUTO) 458 /CMM (150-450); RED BLOOD CELL COUNT(AUTO) 3.31 MIL/uL (4.5-6.0); WHITE BLOOD COUNT (AUTO) 6.8 K/uL (4.3-11.0)
[2019-04-10 07:30] LABS: CALCIUM, SERUM 8.4 mg/dL (8.5-10.1); PHOSPHORUS 4.1 mg/dL (2.5-4.9); POTASSIUM 3.6 mmol/L (3.5-5.1)
--- NOTE | 2019-04-10 07:47 | NUR ---
MEDICAL RECORD CLERK OPENING NOTES RECEIVED PT RESTING IN BED, AWAKE, A/O X3. ON SUPPLEMENTARY OXYGEN AT 2LPM TALITA NC, WITH NO ACUTE RESPIRATORY DISTRESS NOTED. ON TELEMONITORING AFIB HR OF 97-104. DURING ROUNDS, PT DENIES ANY PAIN OR DISCOMFORT. PT DENIES ANY CONCERNS OR QUESTIONS WELL. PT KEPT COMFORTABLE IN BED. CALL LIGHT AND FLUID WITHIN REACH. PT'S BED IN LOWEST, LOCKED POSITION WITH SR X3. WILL CONTINUE PLAN OF CARE.
[2019-04-10] MEDS: LEVOTHYROXINE SODIUM 100 MCG TABLET PO SCH (08:34)
[2019-04-10] MEDS: PANTOPRAZOLE 40 MG TABLET.DR PO SCH (08:34)
[2019-04-10] MEDS: ATORVASTATIN 40 MG TABLET GT SCH (08:34)
[2019-04-10] MEDS: POTASSIUM CHLORIDE 20 MEQ TAB.PRT.SR PO SCH (08:35)
[2019-04-10] MEDS: FUROSEMIDE 40 MG TABLET PO SCH (08:35)
[2019-04-10] MEDS: VALSARTAN 80 MG TABLET PO SCH (08:36)
[2019-04-10] MEDS: DILTIAZEM HCL CD 300 MG PO SCH (08:36)
[2019-04-10] MEDS: CARVEDILOL 12.5 MG TABLET PO SCH ×2 (08:37→20:46)
[2019-04-10] MEDS: ASPIRIN 81 MG TAB.CHEW PO SCH (08:37)
[2019-04-10] MEDS: AMIODARONE HCL 200 MG TABLET PO SCH (08:37)
[2019-04-10] MEDS: NITROGLYCERIN 30 GM TUBE TP SCH ×2 (08:38→21:00)
[2019-04-10] MEDS: MODAFINIL 100 MG TABLET PO SCH (08:44)
[2019-04-10] MEDS ORDERED: LEVOFLOXACIN (500MG) 500 MG TABLET PO SCH (09:00)
--- NOTE | 2019-04-10 12:30 | NUR ---
RN NOTES RT/TARA TRIED FOR PT TO BE IN RA, PT DROPS TO 90-91%. MD LUNDY AWARE. PT BACK TO 2LPM VIA NC. WILL CONTINUE TO MONITOR.
[2019-04-10] MEDS: DIGOXIN 0.25 MG TABLET PO SCH (12:39)
--- NOTE | 2019-04-10 13:46 | NUR ---
RN NOTES SEEN AND EVALUATED BY DR VIRAMONTES WHILE PT KAREN IS ON GOING. 2PTS WORKED WITH PT. PT ABLE TO WALK WITH WALKER, WITH 2 ASSIST. EPISODES OF DROOLING PRESENT, AND THE CHANGE OF EATING, SOMETIMES HE'LL EAT AND TIMES HE WON'T; MD LUNDY STATED "OH HIS EATING CHANGES, IKNOW". AWARE, NO ORDERS AT THIS MOMENT.
[2019-04-10] MEDS: SOD FERRIC GLUC 125 MG in IV NS 0.9% 100 ML IV SCH (14:33)
[2019-04-10] MEDS: RIVAROXABAN 10 MG TABLET PO SCH (16:24)
--- NOTE | 2019-04-10 16:27 | NUR ---
RT PATIENT AWAKE AND ALERT. REMOVED NASAL CANNULA AND MONITOR SpO2 PER MD ORDERS. PLACED BACK ON 2LPM NASAL CANNULA AFTER 30 MIN DUE TO SpO2 90% AND MILD SOB. NURSE BUTCH SERRANO AWARE. OTHER VITALS STABLE. SpO2 97% ON 2LPN NASAL CANNULA. Addendum: 04/10/19 at 1630 by TARA JARVIS RT Amended: Links added.
--- NOTE | 2019-04-10 16:29 | NUR ---
RN NOTES PT ABLE TO DRINK A CUP AND A HALF OF WATER WITH ASSISTANCE WITH NO DIFFICULTY. PT TOOK XARELTO PILLS WHOLE WITH NO DIFFICULTY OF SWALLOWING. PT REMINDED HE DIDN'T EAT FOR BREAKFAST AND ONLY BITES OF LUNCH. PT AWARE. BS TAKEN, RESULTED 102. WILL CONTINUE TO MONITOR PT.
--- NOTE | 2019-04-10 18:49 | NUR ---
MS RN CLOSING NOTES PT REMAINS RESTING IN BED, AWAKE, A/O X3. ON SUPPLEMENTARY OXYGEN AT 2LPM TALITA NC, WITH NO ACUTE RESPIRATORY DISTRESS NOTED. PT DENIES ANY PAIN OR DISCOMFORT AT THIS TIME. PIV TO RAC G18, FLUSHED WITH NS, INTACT AND OPERATIONAL. FC IN PLACE DRAINING YELLOW-COLLETTE COLORED URINE IN THE BAG WITH 400ML OUTPUT. ALL NEEDS AND CARE PROVIDED. HOB KEPT ELEVATED. PT ASSISTED WITH MEALS, CONSUMED 75% AT DINNER MEAL. PT KEPT COMFORTABLE IN BED. CALL LIGHT AND FLUID WITHIN REACH. PT'S BED IN LOWEST, LOCKED POSITION WITH SR X3. WILL ENDORSE TO NIGHT NURSE FOR SHARONA.
--- NOTE | 2019-04-10 19:25 | NUR ---
MS RN OPENING NOTES: RECEIVED PT ON 2LPM VIA NC AND IS TOLERATING WELL. HOB ELEVATED AND PT IS A/OX3. PT IS RESTING IN BED COMFORTABLY. PT HAS IV ON R AC #18G AND IS PATENT AND INTACT. CURRENTLY H/L. PT HAS INMAN CATH AND IS ATTACHED TO DRAINAGE BAG WITH YELLOW URINE DRAINING. BED KEPT IN LOW, LOCKED POSITION, AND SIDE RAILS X2UP. BED ALARM ACTIVATED. WILL CONTINUE TO MONITOR PT.
[2019-04-10] MEDS: DOCUSATE SODIUM 100 MG CAPSULE PO SCH (22:22)
--- NOTE | 2019-04-10 22:50 | NUR ---
MS RN NOTES: BLOOD PRESSURE RECHECKED 108/66 HR84. HELD NITRO OINTMENT.
--- NOTE | 2019-04-11 06:40 | NUR ---
MS RN CLOSING NOTES: ALL NEEDS WERE ATTENDED AND ANTICIPATED FOR. PT KEPT CLEAN, DRY, AND COMFORTABLE. PT ON 2LPM VIA NC AND IS TOLERATING WELL. NO SOB NOTED. NO S/S OF DISTRESS. IV REMAINS INTACT AND HAS BEEN FLUSHED. CURRENTLY H/L. PT ALSO HAS INMAN CATH AND IS ATTACHED TO DRAINAGE BAG WITH YELLOW URINE DRAINING. OUTPUT WAS 1100ML. BED KEPT IN LOW, LOCKED POSITION, AND SIDE RAILS X 2UP. BED ALARM ACTIVATED WELL. WILL ENDORSE TO AM NURSE FOR SHARONA.
--- NOTE | 2019-04-11 07:25 | NUR ---
Nurse Notes: received report from the night nurse Homa Linder, patient is resting in bed, In no respiratory distress. durbin to gravity
[2019-04-11 08:00] VITALS: BP_SYST 124; BP_DIAS 82; BP_DIAS 87
[2019-04-11 08:10] LABS: CREATININE 1.1 mg/dL (0.6-1.3); MAGNESIUM 2.1 mg/dL (1.8-2.4); PHOSPHORUS 3.4 mg/dL (2.5-4.9); POTASSIUM 3.9 mmol/L (3.5-5.1)
[2019-04-11] MEDS: PANTOPRAZOLE 40 MG TABLET.DR PO SCH (08:25)
[2019-04-11] MEDS: LEVOTHYROXINE SODIUM 100 MCG TABLET PO SCH (08:25)
--- NOTE | 2019-04-11 08:30 | NUR ---
Nurse Notes: patient was able to eat breakfast, with the EAR FLAP BINDER. patient was able to swallow to eat 80%. Head of bed remains elevated.
[2019-04-11] MEDS: ATORVASTATIN 40 MG TABLET GT SCH (09:28)
[2019-04-11] MEDS: CARVEDILOL 12.5 MG TABLET PO SCH ×2 (09:29→21:23)
[2019-04-11] MEDS: FUROSEMIDE 40 MG TABLET PO SCH (09:30)
[2019-04-11] MEDS: VALSARTAN 80 MG TABLET PO SCH (09:30)
[2019-04-11] MEDS: POTASSIUM CHLORIDE 20 MEQ TAB.PRT.SR PO SCH (09:30)
[2019-04-11] MEDS: AMIODARONE HCL 200 MG TABLET PO SCH (09:30)
[2019-04-11] MEDS: MODAFINIL 100 MG TABLET PO SCH (09:31)
[2019-04-11] MEDS: DILTIAZEM HCL CD 300 MG PO SCH (09:31)
[2019-04-11] MEDS: ASPIRIN 81 MG TAB.CHEW PO SCH (09:32)
--- NOTE | 2019-04-11 09:40 | NUR ---
Nurse Notes: patient was given medications crushed. given in apple sauce. patient is keeping his medications in mouth, and starting to spit medications out. Diltiazem ER can not be given crush, capsule cannot be open. Nurse tried for 7 minutes, patient still does not want to take any apple sauce.
[2019-04-11] MEDS: NITROGLYCERIN 30 GM TUBE TP SCH ×2 (09:57→21:23)
[2019-04-11] MEDS: DIGOXIN 0.25 MG TABLET PO SCH (13:00)
[2019-04-11] MEDS: SOD FERRIC GLUC 125 MG in IV NS 0.9% 100 ML IV SCH (15:11)
--- NOTE | 2019-04-11 15:11 | NUR ---
Nurse Notes: IV Ferrlecit was started and infusing at 100 cc per hour. Hep lock was flushed with saline.
[2019-04-11 16:00] VITALS: BP 137/79
--- NOTE | 2019-04-11 16:00 | NUR ---
Nurse Notes: IV Ferrlecit is leaking. second RN tried to insert IV line, missed twice. patient has difficult veins to start IV.
[2019-04-11] MEDS: RIVAROXABAN 10 MG TABLET PO SCH (17:00)
--- NOTE | 2019-04-11 18:20 | NUR ---
Nurse Notes: Dr Leger was notified, that patient needs mid line IV. okay to order midline. Dr Leger was here earlier on the unit, doctor is aware that patient is not taking his medications, some medications swallow in the apple sauce while more than half of his medications patient spit out. Patient refused dinner, Xaralto was not given
--- NOTE | 2019-04-11 19:05 | NUR ---
MS RN NOTE RECEIVED PT IN STABLE CONDITION, A&0 X2-3 WITH PERIODS OF CONFUSION. CURRENTLY IN BED WATCHING TV. NO SIGNS OF SOB OR DISTRESS, NO C/O PAIN. ALL CURRENT NEEDS MET. BED LOW, LOCKED, UPPER RAILS UP, AND CALL LIGHT WITHIN REACH. WILL CONT. TO MONITOR.
--- NOTE | 2019-04-11 19:27 | NUR ---
MS RN NOTE MIDLINE PLACED BY STEPHANIE.
[2019-04-11 20:10] VITALS: BP 143/99
--- NOTE | 2019-04-11 22:43 | NUR ---
MS RN NOTE COLACE ORDER CLARIFIED WITH IVONNE (PHARM)
--- NOTE | 2019-04-12 05:38 | NUR ---
MS RN NOTE PT NOTED WITH BP: 149/103, AND HR OF 103. DR. BENDER NOTIFIED WITH NEW ORDER TO GIVE AM DOSE OF VALSARTAN EARLY AND TO PUT PT ON MONITOR FOR OBSERVATION. WILL CONT. TO MONITOR.
[2019-04-12] MEDS: VALSARTAN 80 MG TABLET PO SCH (05:41)
[2019-04-12 06:30] LABS: BASOPHILS # (AUTO) 0.1 /CMM (0.0-0.2); BASOPHILS % (AUTO) 0.7 % (0.0-2.0); EOSINOPHILS % (AUTO) 3.1 % (0.0-6.0); HEMATOCRIT 33 % (39-51); HEMOGLOBIN 11.3 g/dL (13.5-17.5); LYMPHOCYTES # (AUTO) 0.9 /CMM (0.8-4.8); LYMPHOCYTES % (AUTO) 12.2 % (20.0-44.0); MEAN CORPUSCULAR HGB CONC 35 g/dl (31.0-36.0); MEAN CORPUSCULAR VOLUME 90 fL (80-96); MONOCYTES # (AUTO) 0.8 /CMM (0.1-1.30); MONOCYTES % (AUTO) 11.4 % (2.0-12.0); NEUTROPHILS # (AUTO) 5.2 /CMM (1.8-8.9); NEUTROPHILS % (AUTO) 72.6 % (43.0-81.0); PLATELET COUNT (AUTO) 412 /CMM (150-450); RED BLOOD CELL COUNT(AUTO) 3.64 MIL/uL (4.5-6.0); WHITE BLOOD COUNT (AUTO) 7.2 K/uL (4.3-11.0)
[2019-04-12 06:39] LABS: CALCIUM, SERUM 8.7 mg/dL (8.5-10.1); CREATININE 0.9 mg/dL (0.6-1.3); MAGNESIUM 1.8 mg/dL (1.8-2.4); PHOSPHORUS 3.3 mg/dL (2.5-4.9); POTASSIUM 3.6 mmol/L (3.5-5.1)
--- NOTE | 2019-04-12 06:58 | NUR ---
MS RN NOTE PT IN STABLE CONDITION, A&0 X2-3 WITH PERIODS OF CONFUSION. CURRENTLY IN BED, AWAKE. NO SIGNS OF SOB OR DISTRESS, NO C/O PAIN. ALL CURRENT NEEDS MET. BED LOW, LOCKED, UPPER RAILS UP, AND CALL LIGHT WITHIN REACH. WILL CONT. TO MONITOR AND ENDORSE TO NEXT SHIFT FOR SHARONA.
--- NOTE | 2019-04-12 07:23 | NUR ---
RN OPENING NOTE PT WAS RECEIVED IN BED AT LOWEST AND LOCKED POSITION WITH SIDE RAILS UP X2, A/O X2-3 BREATHING EVEN AND UNLABORED ON 2L VIA NC, ON TELE MONITOR FOR OBSERVATION, IV IS PATENT AND INTACT, SAFETY PRECAUTIONS IN PLACE, CALL LIGHT WITHIN REACH, WILL MONITOR PT ACCORDINGLY
[2019-04-12] MEDS: PANTOPRAZOLE 40 MG TABLET.DR PO SCH (07:30)
[2019-04-12 08:00] VITALS: BP 156/115
[2019-04-12] MEDS: AMIODARONE HCL 200 MG TABLET PO SCH (08:09)
[2019-04-12] MEDS: DILTIAZEM HCL CD 120 MG PO SCH (08:09)
[2019-04-12] MEDS: FUROSEMIDE 40 MG TABLET PO SCH (08:09)
[2019-04-12] MEDS: LEVOTHYROXINE SODIUM 100 MCG TABLET PO SCH (08:10)
[2019-04-12] MEDS: MODAFINIL 100 MG TABLET PO SCH (08:10)
[2019-04-12] MEDS: ASPIRIN 81 MG TAB.CHEW PO SCH (08:10)
[2019-04-12] MEDS: ATORVASTATIN 40 MG TABLET GT SCH (08:10)
[2019-04-12] MEDS: CARVEDILOL 12.5 MG TABLET PO SCH ×2 (08:10→21:00)
[2019-04-12] MEDS: POTASSIUM CHLORIDE 20 MEQ TAB.PRT.SR PO SCH (08:22)
[2019-04-12] MEDS: NITROGLYCERIN 30 GM TUBE TP SCH ×2 (08:25→21:14)
--- NOTE | 2019-04-12 09:30 | NUR ---
RN NOTE MADE AWARE OF PT CONDITION, ORDER FOR STAT EKG, WILL IMPLEMENT AND CARRYOUT ACCORDINGLY
--- NOTE | 2019-04-12 12:00 | NUR ---
RN NOTE CONSENT SIGNED FOR MRI WWO CONTRAST OF THE BRAIN BY PATIENT DUE TO HIM BEING UNABLE TO SIGN AT THIS TIME
[2019-04-12] MEDS: DIGOXIN 0.25 MG TABLET PO SCH (12:27)
[2019-04-12] MEDS: SOD FERRIC GLUC 125 MG in IV NS 0.9% 100 ML IV SCH (13:11)
[2019-04-12] MEDS: RIVAROXABAN 10 MG TABLET PO SCH (16:13)
--- NOTE | 2019-04-12 18:16 | NUR ---
RN NOTE MADE AWARE OF MRI REQUEST TO DO SCAN TOMORROW, HE WAS INFORMED AND OKAY WITH IT, MRI OF BRAIN WILL BE DONE TOMORROW AM.
--- NOTE | 2019-04-12 18:18 | NUR ---
RN CLOSING NOTE PT IN BED AT LOWEST AND LOCKED POSITION WITH SIDE RAILS UP X2, A/O X2-3, BREATHING EVEN AND UNLABORED ON 2L VIA NC, IV IS PATENT AND INTACT, SAFETY PRECAUTIONS IN PLACE, CALL LIGHT WITHIN REACH, ALL NEEDS ATTENDED TO, WILL ENDORSE TO CLINICAL BUSINESS MANAGER RN FOR SHARONA.
--- NOTE | 2019-04-12 19:00 | NUR ---
MS RN NOTE RECEIVED PT IN STABLE CONDITION A&O X 1-2 WITH PERIODS OF AMS. PT CURRENTLY IN BED AWAKE WATCHING TV. NO SIGNS OF SOB OR DISTRESS, NO C/O PAIN. INMAN PATENT AND INTACT WITH ADEQUATE URINE DRAINING. MIDLINE IN L AC IN PLACE. ALL CURRENT NEEDS MET. BED LOW, LOCKED, UPPER RAILS UP AND CALL LIGHT WITHIN REACH. WILL CONT. TO MONITOR.
--- NOTE | 2019-04-12 19:56 | NUR ---
MS RN NOTE PT TAKEN FOR CT SCAN OF HEAD.
[2019-04-12 20:00] VITALS: BP 160/100
--- NOTE | 2019-04-12 20:55 | NUR ---
MS RN NOTE NOTIFIED DR. BENDER OF BP 162/100, HR 85. NEW ORDER FOR ONE TIME DOSE HYDRALZINE 10 MG IV AND TO PUT PT ON TELE MONITOR. WILL CONT. TO MONITOR.
[2019-04-12] MEDS ORDERED: hydrALAZINE HCL IV 20 MG VIAL IV ONE (21:30)
[2019-04-12] MEDS: DOCUSATE SODIUM 250 MG CAPSULE PO SCH (22:00)
--- NOTE | 2019-04-12 22:17 | NUR ---
MS RN NOTE BP RECHECKED: 149/81, TELE MONITOR PVC 108. PT IN NO CURRENT DISTRESS, RESTING COMFORTABLY. WILL CONT TO MONITOR.
--- NOTE | 2019-04-13 06:30 | NUR ---
MS RN NOTE PT IN STABLE CONDITION A&O X 1-2 WITH PERIODS OF AMS. PT CURRENTLY IN BED AWAKE WATCHING TV. NO SIGNS OF SOB OR DISTRESS, NO C/O PAIN. INMAN PATENT AND INTACT WITH ADEQUATE URINE DRAINING. MIDLINE IN L AC IN PLACE. ALL CURRENT NEEDS MET. BED LOW, LOCKED, UPPER RAILS UP AND CALL LIGHT WITHIN REACH. WILL CONT. TO MONITOR AND ENDORSE TO NEXT SHIFT FOR SHARONA.
[2019-04-13 06:42] LABS: BASOPHILS # (AUTO) 0.1 /CMM (0.0-0.2); BASOPHILS % (AUTO) 0.7 % (0.0-2.0); EOSINOPHILS % (AUTO) 2.1 % (0.0-6.0); HEMATOCRIT 31 % (39-51); HEMOGLOBIN 10.5 g/dL (13.5-17.5); LYMPHOCYTES # (AUTO) 0.8 /CMM (0.8-4.8); LYMPHOCYTES % (AUTO) 10.6 % (20.0-44.0); MEAN CORPUSCULAR HGB CONC 34 g/dl (31.0-36.0); MEAN CORPUSCULAR VOLUME 89 fL (80-96); MONOCYTES % (AUTO) 12.4 % (2.0-12.0); NEUTROPHILS # (AUTO) 5.8 /CMM (1.8-8.9); NEUTROPHILS % (AUTO) 74.2 % (43.0-81.0); PLATELET COUNT (AUTO) 396 /CMM (150-450); RED BLOOD CELL COUNT(AUTO) 3.42 MIL/uL (4.5-6.0); WHITE BLOOD COUNT (AUTO) 7.8 K/uL (4.3-11.0)
[2019-04-13 06:56] LABS: CALCIUM, SERUM 8.9 mg/dL (8.5-10.1); CREATININE 0.9 mg/dL (0.6-1.3); PHOSPHORUS 3.5 mg/dL (2.5-4.9); POTASSIUM 3.4 mmol/L (3.5-5.1)
[2019-04-13] MEDS: PANTOPRAZOLE 40 MG TABLET.DR PO SCH (07:30)
[2019-04-13] MEDS: LEVOTHYROXINE SODIUM 100 MCG TABLET PO SCH (07:30)
[2019-04-13 08:00] VITALS: BP 136/82
[2019-04-13] MEDS: NITROGLYCERIN 30 GM TUBE TP SCH ×2 (09:00→20:48)
[2019-04-13] MEDS: POTASSIUM CHLORIDE 20 MEQ TAB.PRT.SR PO SCH (09:00)
[2019-04-13] MEDS: VALSARTAN 80 MG TABLET PO SCH (09:00)
[2019-04-13] MEDS: ATORVASTATIN 40 MG TABLET GT SCH (09:00)
[2019-04-13] MEDS: ASPIRIN 81 MG TAB.CHEW PO SCH (09:00)
[2019-04-13] MEDS: SPIRONOLACTONE 25 MG TABLET PO SCH (09:30)
--- NOTE | 2019-04-13 09:40 | NUR ---
unable to give am meds including BP meds due to patient's mental status. Will try later when patient more awake
[2019-04-13] MEDS: DILTIAZEM HCL CD 120 MG PO SCH (09:46)
[2019-04-13] MEDS: CARVEDILOL 12.5 MG TABLET PO SCH ×2 (09:47→20:36)
[2019-04-13] MEDS: MODAFINIL 100 MG TABLET PO SCH (09:47)
[2019-04-13] MEDS: FUROSEMIDE 40 MG TABLET PO SCH (09:48)
[2019-04-13] MEDS: AMIODARONE HCL 200 MG TABLET PO SCH (09:49)
--- NOTE | 2019-04-13 10:00 | NUR ---
patient picked up by radiology staff for MRI
--- NOTE | 2019-04-13 11:00 | NUR ---
AM MEDS GIVEN PARTIALLY. PATIENT NOT ABLE TO SWALLOW MEDICATION
--- NOTE | 2019-04-13 11:20 | NUR ---
patient back to unit. More awake, stable VS. at bedside
--- NOTE | 2019-04-13 12:57 | NUR ---
PER DR. YANG: INCREASE O2 FLOW VIA NS TO 5L. REMOVE F/C
[2019-04-13] MEDS: DIGOXIN 0.25 MG TABLET PO SCH (13:00)
--- NOTE | 2019-04-13 13:05 | NUR ---
F/C REMOVED , NO BLEEDING NOTED. PATIENT INSTRUCTED TO USE URINAL.
[2019-04-13] MEDS: POTASSIUM CL. PREMIX PERIPHER. 50 ML IV SCH ×2 (13:19→15:12)
[2019-04-13] MEDS ORDERED: GADODIAMIDE 5 MMOL/10 ML VIAL IJ ONE (15:56)
[2019-04-13 16:00] VITALS: BP 138/89
--- NOTE | 2019-04-13 16:13 | NUR ---
BEDSIDE SWALLOW EVALUATION PASSED
[2019-04-13] MEDS: RIVAROXABAN 10 MG TABLET PO SCH (17:00)
--- NOTE | 2019-04-13 17:40 | NUR ---
XARELTO NOT GIVEN DUE TO PATIENT UNABLE TO SWALLOW
--- NOTE | 2019-04-13 19:37 | NUR ---
PT IN STABLE CONDITION A&O X 2 WITH PERIODS OF AMS. PT CURRENTLY IN BED WATCHING TV. NO SIGNS OF SOB OR DISTRESS, NO C/O PAIN. MIDLINE IN L AC IN PLACE. ALL CURRENT NEEDS MET. BED LOW, LOCKED, UPPER RAILS UP AND CALL LIGHT WITHIN REACH. WILL ENDORSE TO NEXT SHIFT FOR SHARONA.
[2019-04-13 20:00] VITALS: BP 155/80
[2019-04-13] MEDS: CLONIDINE HCL 0.3 MG/24H PTWK 1 EA PATCH TD SCH (20:35)
[2019-04-13] MEDS: DOCUSATE SODIUM 250 MG CAPSULE PO SCH (22:00)
--- NOTE | 2019-04-13 22:33 | NUR ---
MS/RN COLACE NOT GIVEN, PATIENT IS ON PUREE DIET AND CRUSH MEDS.
--- NOTE | 2019-04-13 22:35 | NUR ---
MS/RN ON INITIAL SHIFT ROUND AT 0, PATIENT WAS AWAKE, ALERT, AND ORIENTED, COMFORTABLE, NO C/O PAIN, NO DISTRESS NOTED, CALL LIGHT IN REACH, FALL PRECAUTION. WILL MONITOR.
--- NOTE | 2019-04-13 23:00 | NUR ---
MS/RN PATIENT IS SLEEPING AT THIS TIME, AROUSABLE, APPEAR COMFORTABLE, NO SIGNS OF DISTRESS NOTED, CALL LIGHT IN REACH. WILL CONTINUE TO MONITOR.
--- NOTE | 2019-04-14 03:36 | NUR ---
MS/RN NO URINE OUTPUT NOTED SINCE 1899 LAST NIGHT, BLADDER SCAN DONE, 119 MLS URINE IN THE BLADDER. ENCOURAGED PATIENT TO VOID, PER PATIENT HE WILL TRY TO VOID IN THE URINAL.
--- NOTE | 2019-04-14 04:50 | NUR ---
MS/RN PATIENT VOIDED IN DIAPER. DIAPER VERY SATURATED WITH URINE.
[2019-04-14 06:21] LABS: BASOPHILS # (AUTO) 0.1 /CMM (0.0-0.2); BASOPHILS % (AUTO) 0.7 % (0.0-2.0); EOSINOPHILS % (AUTO) 2.7 % (0.0-6.0); HEMATOCRIT 28 % (39-51); HEMOGLOBIN 10.1 g/dL (13.5-17.5); LYMPHOCYTES # (AUTO) 0.7 /CMM (0.8-4.8); LYMPHOCYTES % (AUTO) 9.5 % (20.0-44.0); MEAN CORPUSCULAR HGB CONC 36 g/dl (31.0-36.0); MEAN CORPUSCULAR VOLUME 89 fL (80-96); MONOCYTES # (AUTO) 0.9 /CMM (0.1-1.30); MONOCYTES % (AUTO) 12.1 % (2.0-12.0); NEUTROPHILS # (AUTO) 5.3 /CMM (1.8-8.9); PLATELET COUNT (AUTO) 367 /CMM (150-450); RED BLOOD CELL COUNT(AUTO) 3.17 MIL/uL (4.5-6.0); WHITE BLOOD COUNT (AUTO) 7.1 K/uL (4.3-11.0)
[2019-04-14 06:23] LABS: CALCIUM, SERUM 8.4 mg/dL (8.5-10.1); CREATININE 0.9 mg/dL (0.6-1.3); MAGNESIUM 1.9 mg/dL (1.8-2.4); PHOSPHORUS 3.3 mg/dL (2.5-4.9); POTASSIUM 3.5 mmol/L (3.5-5.1)
[2019-04-14 06:30] LABS: THYROID STIMULATING HORMONE 5.658 uIU/mL (0.358-3.74)
--- NOTE | 2019-04-14 06:53 | NUR ---
MS/RN PATIENT STILL SLEEPING AT THIS TIME, AROUSABLE, APPEAR COMFORTABLE, NO SIGNS OF DISTRESS NOTED, ALL NEEDS ATTENDED AT THIS TIME, WILL CONTINUE TO MONITOR.
[2019-04-14 08:00] VITALS: BP 163/88
--- NOTE | 2019-04-14 08:00 | NUR ---
MS RN NOTES PATIENT IN BED RESTING ALERT, ORIENTED X1. NO SOB OR ACUTE DISTRESS NOTED. PATIENT WITH MIDLINE INTACT PATENT. CALL LIGHT WITHIN REACH. BED IN LOW LOCKED POSITION. WILL CONTINUE TO MONITOR.
[2019-04-14] MEDS: SPIRONOLACTONE 25 MG TABLET PO SCH (08:20)
[2019-04-14] MEDS: VALSARTAN 80 MG TABLET PO SCH (08:21)
[2019-04-14] MEDS: FUROSEMIDE 40 MG TABLET PO SCH (08:21)
[2019-04-14] MEDS: DILTIAZEM HCL CD 120 MG PO SCH (08:21)
[2019-04-14] MEDS: CARVEDILOL 12.5 MG TABLET PO SCH ×2 (08:21→21:00)
[2019-04-14] MEDS: ASPIRIN 81 MG TAB.CHEW PO SCH (08:21)
[2019-04-14] MEDS: LEVOTHYROXINE SODIUM 100 MCG TABLET PO SCH (08:21)
[2019-04-14] MEDS: PANTOPRAZOLE 40 MG TABLET.DR PO SCH (08:22)
[2019-04-14] MEDS: POTASSIUM CHLORIDE 20 MEQ TAB.PRT.SR PO SCH (08:22)
[2019-04-14] MEDS: ATORVASTATIN 40 MG TABLET GT SCH (08:22)
[2019-04-14] MEDS: AMIODARONE HCL 200 MG TABLET PO SCH (08:22)
[2019-04-14] MEDS: MODAFINIL 100 MG TABLET PO SCH (09:32)
[2019-04-14] MEDS: NITROGLYCERIN 30 GM TUBE TP SCH ×2 (09:33→22:06)
[2019-04-14] MEDS: DIGOXIN 0.25 MG TABLET PO SCH (12:31)
[2019-04-14 16:00] VITALS: BP 135/76
--- NOTE | 2019-04-14 17:22 | NUR ---
MS RN NOTES PATIENT IN BED RESTING ALERT, ORIENTED X2. STABLE NO ACUTE CHANGED NOTED. PATIENT APPEARS MORE ALERT THEN THIS AM. MIDLINE INTACT, PATENT. BED IN LOW LOCKED POSITION. ENDORSED CARE TO MUMTAZ.
[2019-04-14] MEDS: RIVAROXABAN 10 MG TABLET PO SCH (17:23)
--- NOTE | 2019-04-14 18:15 | NUR ---
MS/RN - S/b Dr. Arenas Seen and examined by Dr. Arenas with order to give Keppra 250 mg po daily.
[2019-04-14] MEDS: LEVETIRACETAM SOL (5 ML) 100 MG/ML UDC PO SCH (18:42)
--- NOTE | 2019-04-14 19:57 | NUR ---
MS/RN RECEIVE PATIENT AWAKE, ALERT, CONFUSED, NO DISTRESS NOTED, FALL PRECAUTIONS, WILL MONITOR.
[2019-04-14] MEDS: DOCUSATE SODIUM 250 MG CAPSULE PO SCH (22:00)
--- NOTE | 2019-04-14 23:28 | NUR ---
MS/RN UNABLE TO GIVE COREG AND COLACE AT 2200, PATIENT WAS CONFUSED HENCE HIGH RISK FOR ASPIRATION.
--- NOTE | 2019-04-15 01:15 | NUR ---
MS/RN PATIENT IS SLEEPING AT THIS TIME, EASILY AROUSABLE, APPEAR COMFORTABLE, NO SIGNS OF DISTRESS NOTED, WILL CONTINUE TO MONITOR.
--- NOTE | 2019-04-15 06:03 | NUR ---
MS/RN PATIENT IS AWAKE, CONFUSED, COMFORTABLE, NO DISTRESS NOTED, ALL NEEDS ATTENDED AT THIS TIME. WILL CONTINUE TO MONITOR.
--- NOTE | 2019-04-15 07:15 | NUR ---
MS RN OPENING NOTES RECEIVED PATIENT AWAKE IN BED IN NO ACUTE SIGNS OF DISTRESS. HOB ELEVATED. A/O X2. CONFUSED AND VERBALLY RESPONSIVE, DENIES ANY PAIN OR DISCOMFORTS AT THIS TIME. ON 02 VIA N/C @ 2LPM, RESPIRATIONS EVEN AND UNLABORED. MIDLINE ON VAN INTACT AND PATENT. SAFETY MEASURES IN PLACE. BED IN LOW LOCKED POSITION WITH SR UP X3. CALL LIGHT IN REACH. WILL CONTINUE TO MONITOR ACCORDINGLY.
[2019-04-15] MEDS: LEVOTHYROXINE SODIUM 100 MCG TABLET PO SCH (07:31)
[2019-04-15] MEDS: PANTOPRAZOLE 40 MG TABLET.DR PO SCH (07:31)
[2019-04-15 08:00] VITALS: BP 142/77
[2019-04-15] MEDS: AMIODARONE HCL 200 MG TABLET PO SCH (08:14)
[2019-04-15] MEDS: DILTIAZEM HCL CD 120 MG PO SCH (08:14)
[2019-04-15] MEDS: VALSARTAN 80 MG TABLET PO SCH (08:15)
[2019-04-15] MEDS: MODAFINIL 100 MG TABLET PO SCH (08:15)
[2019-04-15] MEDS: SPIRONOLACTONE 25 MG TABLET PO SCH (08:15)
[2019-04-15] MEDS: LEVETIRACETAM SOL (5 ML) 100 MG/ML UDC PO SCH (08:15)
[2019-04-15] MEDS: POTASSIUM CHLORIDE 20 MEQ TAB.PRT.SR PO SCH (08:16)
[2019-04-15] MEDS: ASPIRIN 81 MG TAB.CHEW PO SCH (08:16)
[2019-04-15] MEDS: ATORVASTATIN 40 MG TABLET GT SCH (08:16)
[2019-04-15] MEDS: FUROSEMIDE 40 MG TABLET PO SCH (08:16)
[2019-04-15] MEDS: CARVEDILOL 12.5 MG TABLET PO SCH ×2 (08:17→21:06)
[2019-04-15] MEDS: NITROGLYCERIN 30 GM TUBE TP SCH ×2 (08:19→21:06)
[2019-04-15] MEDS: DIGOXIN 0.25 MG TABLET PO SCH (12:26)
[2019-04-15 16:00] VITALS: BP 116/67
--- NOTE | 2019-04-15 16:16 | NUR ---
RN NOTES/REPORT PATIENT FOR DISCHARGE TO [facility] THIS AFTERNOON, PICK-UP TIME BY AMBULANCE IS 1830. CALLED AND REPORT GIVEN TO MAGGIE CISNEROS OF [facility]. WILL CONTINUE TO MONITOR.
[2019-04-15] MEDS: RIVAROXABAN 10 MG TABLET PO SCH (16:44)
--- NOTE | 2019-04-15 18:39 | NUR ---
MS RN CLOSING NOTES PATIENT IN BED AWAKE AND LYING AT MODERATE HIGH BACKREST POSITION. AT BEDSIDE. A/O X2. VERBALLY RESPONSIVE WITH EPISODE OF CONFUSION NOTED DURING THE DAY. ON 02 VIA N/C @ 2LPM, TOLERATING WELL WITH NO SOB NOTED. MIDLINE ON VAN INTACT AND PATENT, FLUSHED WITH NS AND OPERATIONAL. ALL NEEDS AND CARE PROVIDED WELL. SAFETY MEASURES KEPT IN PLACE. BED IN LOW LOCKED POSITION WITH SR UP X3. CALL LIGHT IN REACH. PATIENT FOR DISCHARGE TO [facility], PICK-UP TIME BY AMBULANCE IS 1930. WILL ENDORSE TO REAR LOAD TRUCK DRIVER NURSE.
--- NOTE | 2019-04-15 19:45 | NUR ---
MS DEONDRE NOTES RECEIVED PT IN BED AWAKE AND ALERT WATCHING TV AT THIS TIME WHILE TALKING TO HIS AT THE BEDSIDE. DENIES ANY PAIN OR ANY DISCOMFORT. NO SIGNS OF ANY ACUTE DISTRESS NOTED. PT AWARE THAT HE WILL BE DC TONIGHT GOING TO [place] . KEPT HIM WARM AND COMFORTABLE AT ALL TIMES. WILL CONTINUE MONITORING. SITTER AT THE BEDSIDE.
[2019-04-15 21:06] VITALS: BP 125/80
--- NOTE | 2019-04-15 21:30 | NUR ---
MS DEONDRE CLOSING NOTES SHEET ROLLER OPERATOR CAME TO CHIEF PHYSICAL THERAPIST THE PT , DUE MEDS GIVEN ORDERED. DENIES ANY CHEST PAIN OR ANY DISCOMFORT. NO SIGNS OF ANY ACUTE DISTRESS NOTED. LEFT UPPER MIDLINE REMOVED . HAND HELD PT COPY OF HIS CHART . AT THE BEDSIDE AT THIS TIME. REPORT GIVEN AND AM SHIFT NURSE GAVE REPORT TO THE DETENTION.
== END 2019-04-15 21:30 | DRG 201 ==
LOC: ER 00:54 → TELE1 03:43 → ICU 17:53 → TELE 04-09 19:27 → MED 04-10 08:31
PROVIDERS: ADMIT Nurse Practitioner Acute Care; ATTEND Internal Medicine
PROC: 05H633Z Insertion of Infusion Device into Left Subclavian Vein, Percutaneous Approach (ICD-10-PCS; principal; 2019-04-11)
PROC: B547ZZA Ultrasonography of Left Subclavian Vein, Guidance (ICD-10-PCS; principal; 2019-04-11)
DX: I48.91 Unspecified atrial fibrillation (principal); I21.A1 Myocardial infarction type 2; G93.41 Metabolic encephalopathy; J18.9 Pneumonia, unspecified organism; D68.59 Other primary thrombophilia; I11.0 Hypertensive heart disease with heart failure; I42.9 Cardiomyopathy, unspecified; E44.1 Mild protein-calorie malnutrition; E88.09 Other disorders of plasma-protein metabolism, not elsewhere classified; I50.9 Heart failure, unspecified; Z95.1 Presence of aortocoronary bypass graft; Z68.41 Body mass index [BMI] 40.0-44.9, adult; E86.0 Dehydration; Z95.2 Presence of prosthetic heart valve; E03.9 Hypothyroidism, unspecified; I25.10 Atherosclerotic heart disease of native coronary artery without angina pectoris; E66.9 Obesity, unspecified; D63.8 Anemia in other chronic diseases classified elsewhere; J98.11 Atelectasis; G47.33 Obstructive sleep apnea (adult) (pediatric)
CPT/HCPCS: 36415; 36600; 70450-TC; 70496-TC; 70498-TC; 70551-TC; 70553-TC; 71045-TC; 80048-TC; 80053-TC; 80061-TC; 80076-TC; 81000-TC; 82728-TC; 82803-TC; 82962-TC; 83540-TC; 83605-TC; 83735-TC; 84100-TC; 84443-TC; 84484-TC; 85025-TC; 85730-TC; 87040-TC; 87081-TC; 87086-TC; 92526; 92611-TC; 93307-TC; 94799-TC; 95819-TC; 97110-TC; 97116-TC; 97530-TC; 97535-TC; A4216; A6403; A9579; G0378; J0282; J0360; J0696; J1120; J1650; J1940; J1953; J1956; J2916; J3475; J3480; J3490; J7030; J7040; J7050; J7060; Q9967

== ENCOUNTER 2019-05-08 16:06 | Emergency (ER) | payer OTHER ==
[~2019-05-08] VITALS: Ht 182.9 cm; Wt 97.5 kg
[~2019-05-08 16:06] MED LIST: AMIO200T4 PO; ASPI-1169 PO; ATOR40TA PO; CARV6.25 PO; DOCU100C36 PO; HYDR-4384 PO; LEVO25TA7 PO
--- NOTE | 2019-05-08 16:20 | NUR ---
JOSE J CHONG 87 FROM HOME, "CONFUSED/DISORIENTED', HAD RECENT HEART SURGERY, WAS ON REHAB AND DISCHARGED TODAY, BS=85" - TO ER BED 3, HOOKED TO MONITOR, CHANGED TO GOWN, PROVIDED W WARM BLANKET, DR TRISTAN AT BEDSIDE
[2019-05-08 16:30] LABS: BASOPHILS % (AUTO) 0.7 % (0.0-2.0); EOSINOPHILS % (AUTO) 4.1 % (0.0-6.0); HEMATOCRIT 35 % (39-51); LYMPHOCYTES % (AUTO) 19.3 % (20.0-44.0); MEAN CORPUSCULAR HGB CONC 34 g/dl (31.0-36.0); MEAN CORPUSCULAR VOLUME 90 fL (80-96); MONOCYTES # (AUTO) 0.6 /CMM (0.1-1.30); MONOCYTES % (AUTO) 10.7 % (2.0-12.0); NEUTROPHILS # (AUTO) 3.4 /CMM (1.8-8.9); NEUTROPHILS % (AUTO) 65.2 % (43.0-81.0); PLATELET COUNT (AUTO) 210 /CMM (150-450); RED BLOOD CELL COUNT(AUTO) 3.94 MIL/uL (4.5-6.0); WHITE BLOOD COUNT (AUTO) 5.2 K/uL (4.3-11.0)
[2019-05-08] MEDS ORDERED: IV NS 0.9% 500 ML BAG IV ONE (16:30)
[2019-05-08 16:41] LABS: CALCIUM, SERUM 9.4 mg/dL (8.5-10.1); CARBON DIOXIDE 26 mmol/L (21-32); CHLORIDE 104 mmol/L (98-107); CREATININE 1.3 mg/dL (0.6-1.3); GLUCOSE 99 mg/dL (74-106); POTASSIUM 4.1 mmol/L (3.5-5.1); SODIUM SERUM 140 mmol/L (136-145); UREA NITROGEN, BLOOD 26 mg/dL (7-18)
--- NOTE | 2019-05-08 16:45 | NUR ---
DR RUSS SPEAKING TO . Addendum: 05/08/19 at [address] TRISTAN SPEAKING TO .
[2019-05-08 16:46] LABS: ALANINE AMINOTRANSFERASE 25 U/L (12-78); ALBUMIN 3.7 g/dL (3.4-5.0); ALCOHOL, BLOOD < 3 mg/dL (0-0); ALKALINE PHOSPHATASE 92 U/L (46-116); ASPARTATE AMINOTRANSFERASE 24 U/L (15-37); BILIRUBIN,DIRECT 0.1 mg/dL (0.0-0.2); BILIRUBIN,TOTAL 0.5 mg/dL (0.2-1.0); TOTAL PROTEIN, SERUM 7.2 g/dL (6.4-8.2)
--- NOTE | 2019-05-08 16:51 | NUR ---
WHEELED OUT VIA [facility] FOR CT SCAN AND XRAY
[2019-05-08 17:29] LABS: APPEARANCE,URINE Clear (CLEAR); BILIRUBIN,URINE SMALL (NEGATIVE); BLOOD, URINE Negative Ery/uL (NEGATIVE); COLOR,URINE Yellow (YELLOW); KETONES,URINE 40 (NEGATIVE); LEUKOCYTE ESTERASE ,URINE Negative (NEGATIVE); NITRITE, URINE Negative (NEGATIVE); PH,URINE 5.5 (5.0-8.0); PROTEIN,URINE 30 mg/dl (NEGATIVE); UGLUCOSE Negative (NEGATIVE); UROBILINOGEN,URINE 0.2 EU/dL (0.2)
[2019-05-08 17:30] LABS: BACTERIA,URINE None seen /HPF (None Seen); RBC,URINE 0-2 /HPF (0-2); SQUAMOUS EPITHELIAL CELL,UR Few /HPF (None Seen); WBC,URINE 0-2 /HPF (0-3)
--- NOTE | 2019-05-08 17:33 | NUR ---
CALLED DR MONIQUE ACEVEDO ([phone]) FOR CONSULT, HAD DR CHRISTIANSON, AWAITING RETURN CALL.
--- NOTE | 2019-05-08 18:35 | NUR ---
IV removed. Catheter intact and site benign. Pressure and 4x4 applied to site. No bleeding noted.Patient discharged to home with in stable condition. Written and verbal after care instructions given. Patient verbalizes understanding of instruction.
[2019-05-08 18:43] VITALS: BP 149/87
[2019-05-09] MEDS ORDERED: LACT10SO PO (12:05)
[2019-05-09] MEDS ORDERED: VALS80TA2 PO (12:05)
[2019-05-09] MEDS ORDERED: FURO-144 PO (12:05)
[2019-05-09] MEDS ORDERED: MAGN400O6 PO (12:05)
[2019-05-09] MEDS ORDERED: LEVE250T2 PO (12:05)
[2019-05-09] MEDS ORDERED: POLY17PO4 PO (12:05)
[2019-05-09] MEDS ORDERED: DILT360C28 PO (12:05)
[2019-05-09] MEDS ORDERED: POTA10TA15 PO (12:05)
[2019-05-09] MEDS ORDERED: PANT40TA2 PO (12:05)
[2019-05-09] MEDS ORDERED: POTA20TA83 PO (12:05)
[2019-05-09] MEDS ORDERED: SPIR25TA PO (12:05)
[2019-05-09] MEDS ORDERED: DIGO125T PO (12:05)
[2019-05-09] MEDS ORDERED: CLON0.3P TD (12:05)
[2019-05-09] MEDS ORDERED: RIVA10TA PO (12:05)
[2019-05-09] MEDS ORDERED: BISA10SU11 RC (12:05)
[2019-05-09] MEDS ORDERED: FURO-145 PO (12:05)
[2019-05-09] MEDS ORDERED: ACET-868 PO (12:05)
[2019-05-09] MEDS ORDERED: MODA100T14 PO (12:05)
[2019-05-09] MEDS ORDERED: CLON0.5T PO (12:05)
[2019-05-12] MEDS ORDERED: MUPI22OI7 (13:58)
[2019-05-12] MEDS ORDERED: CARV12.52 PO (13:58)
[2019-05-12] MEDS ORDERED: LEVO75TA PO (13:58)
== END 2019-05-08 18:44 | disposition home or self-care (01) ==
LOC: ER 16:09
DX: R06.02 Shortness of breath (principal); R41.0 Disorientation, unspecified; R40.4 Transient alteration of awareness; I48.91 Unspecified atrial fibrillation; I25.10 Atherosclerotic heart disease of native coronary artery without angina pectoris; I10 Essential (primary) hypertension; E03.9 Hypothyroidism, unspecified; Z95.2 Presence of prosthetic heart valve; Z95.1 Presence of aortocoronary bypass graft; Z79.82 Long term (current) use of aspirin
CPT/HCPCS: 36415; 70450; 71045; 80048; 80076; 80307; 81001; 84484; 85025; 85730; 93005; 99284; J7040; 81000-TC; G0480

== ENCOUNTER 2019-05-08 20:59 | Inpatient (IN) | payer OTHER ==
[~2019-05-08] VITALS: Ht 180.3 cm; Wt 97.1 kg
--- NOTE | 2019-05-08 21:05 | NUR ---
PT BROUGHT IN BY FOR ALTERED MENTAL STATUS. PT WAS DISCHARGED EARLIER TODAY. PT HAD CABG DONE 2 WEEKS AGO. PT IS AOX4 AT THIS TIME. NAD NOTED. RESP EVEN AND UNLABORED. PT DENIES PAIN AT THIS TIME. AT BEDSIDE. PT ON MONITOR IN BED 1. WILL CONTINUE TO MONITOR.
--- NOTE | 2019-05-08 21:49 | NUR ---
BLOOD DRAWN AND GIVEN TO LAB
[2019-05-08 21:55] LABS: BASOPHILS % (AUTO) 0.6 % (0.0-2.0); HEMATOCRIT 33 % (39-51); HEMOGLOBIN 11.4 g/dL (13.5-17.5); LYMPHOCYTES # (AUTO) 1.2 /CMM (0.8-4.8); LYMPHOCYTES % (AUTO) 24.6 % (20.0-44.0); MEAN CORPUSCULAR HGB CONC 34 g/dl (31.0-36.0); MEAN CORPUSCULAR VOLUME 89 fL (80-96); MONOCYTES # (AUTO) 0.6 /CMM (0.1-1.30); MONOCYTES % (AUTO) 11.7 % (2.0-12.0); NEUTROPHILS # (AUTO) 2.8 /CMM (1.8-8.9); NEUTROPHILS % (AUTO) 59.1 % (43.0-81.0); PLATELET COUNT (AUTO) 197 /CMM (150-450); RED BLOOD CELL COUNT(AUTO) 3.73 MIL/uL (4.5-6.0); WHITE BLOOD COUNT (AUTO) 4.8 K/uL (4.3-11.0)
--- NOTE | 2019-05-08 22:02 | NUR ---
MRSA SWAB DONE
[2019-05-08 22:05] LABS: CALCIUM, SERUM 8.9 mg/dL (8.5-10.1); CREATININE 1.5 mg/dL (0.6-1.3); POTASSIUM 3.6 mmol/L (3.5-5.1)
[2019-05-08 22:11] LABS: ALBUMIN 3.6 g/dL (3.4-5.0); BILIRUBIN,DIRECT 0.1 mg/dL (0.0-0.2); BILIRUBIN,TOTAL 0.5 mg/dL (0.2-1.0); TOTAL PROTEIN, SERUM 6.8 g/dL (6.4-8.2)
--- NOTE | 2019-05-08 23:22 | NUR ---
BED 112-1
[2019-05-08] MEDS ORDERED: IV NS 0.9% 1,000 ML IV PRN (23:28)
[2019-05-08] MEDS ORDERED: MAGNESIUM HYDROXIDE 30 ML UDC PO PRN (23:30)
[2019-05-08] MEDS ORDERED: MAG HYDROX/AL HYDROX/SIMETH 30 ML UDC PO PRN (23:30)
[2019-05-08] MEDS ORDERED: ONDANSETRON HCL/PF 4 MG/2 ML VIAL IVP PRN (23:30)
[2019-05-08] MEDS ORDERED: Z GUARD REMEDY 2 OZ OINT TP PRN (23:30)
[2019-05-08] MEDS ORDERED: HYDROCODONE/APAP 5/325MG 1 EACH TABLET PO PRN (23:30)
[2019-05-08] MEDS ORDERED: ACETAMINOPHEN 325 MG TABLET PO PRN (23:30)
[2019-05-09] VITALS (7 sets, daily range): BP systolic 123–163; BP diastolic 61–86
--- NOTE | 2019-05-09 00:07 | NUR ---
REPORT GIVEN TO MAGGIE FELIX FOR SHARONA
--- NOTE | 2019-05-09 00:45 | NUR ---
GRACIE/CIVIL PREPAREDNESS OFFICER PT RECEIVED FROM ER, PT ORT TO ROOM. ORDERS RECEIVED FROM MD AND CARRIED OUT.
--- NOTE | 2019-05-09 03:45 | NUR ---
GRACIE/SIGNAL WORKER HELPER PT'S AM BLOOD PRESSURE IS HIGH AT 160/81. RETAKEN WAS DOWN TO 152/80. PT APPEARS TO HAVE SOME ANXIETY. FEET MOVING BACK AND FORTH AND CONSTANT TALKING. PT REASSURED THAT WILL DO LABS AND PROCEDURES TO HELP PT GET BETTER.
--- NOTE | 2019-05-09 05:00 | NUR ---
GRACIE/SHIPSMITH WHILE IN ROOM WITH PT, PT WAS SAYING THAT HE "TAKES IT CRUSHED." ASKED THE PT IF HE WANTED PAIN MEDICATION HE SAID "NO, BECAUSE IT MAKES ME CONSTIPATED." THEN ASKED WHAT PT MEANT BY THIS, THEN HE SAID NEVER MIND. WILL CONTINUE TO MONITOR THIS PT.
--- NOTE | 2019-05-09 05:30 | NUR ---
GRACIE/APPLICATION DEVELOPMENT TEAM LEAD AM LABS WERE DONE, AWAIT FOR ANY ABNORMAL LABS.
[2019-05-09 06:38] LABS: CALCIUM, SERUM 8.4 mg/dL (8.5-10.1); CREATININE 1.3 mg/dL (0.6-1.3); POTASSIUM 3.8 mmol/L (3.5-5.1)
[2019-05-09 06:40] LABS: MAGNESIUM 1.7 mg/dL (1.8-2.4); PHOSPHORUS 4.1 mg/dL (2.5-4.9)
--- NOTE | 2019-05-09 06:40 | NUR ---
GRACIE/TIMBER INCISOR OPERATOR WHEN LAB WAS IN ROOM, PT APPEARED TO BE SLIGHTLY CONFUSED. WHICH WAS CONFIRMATION THAT THERE APPEARS TO BE A PROBLEM WITH THIS PT. WILL PASS ON TO DAY SHIFT, TO MAKE MD AWARE OF THIS.
[2019-05-09 06:45] LABS: BASOPHILS % (AUTO) 0.8 % (0.0-2.0); EOSINOPHILS % (AUTO) 5.6 % (0.0-6.0); HEMATOCRIT 32 % (39-51); HEMOGLOBIN 11.1 g/dL (13.5-17.5); LYMPHOCYTES # (AUTO) 1.3 /CMM (0.8-4.8); LYMPHOCYTES % (AUTO) 30.4 % (20.0-44.0); MEAN CORPUSCULAR HGB CONC 35 g/dl (31.0-36.0); MEAN CORPUSCULAR VOLUME 89 fL (80-96); MONOCYTES # (AUTO) 0.5 /CMM (0.1-1.30); MONOCYTES % (AUTO) 11.5 % (2.0-12.0); NEUTROPHILS # (AUTO) 2.2 /CMM (1.8-8.9); NEUTROPHILS % (AUTO) 51.7 % (43.0-81.0); PLATELET COUNT (AUTO) 188 /CMM (150-450); RED BLOOD CELL COUNT(AUTO) 3.54 MIL/uL (4.5-6.0); WHITE BLOOD COUNT (AUTO) 4.2 K/uL (4.3-11.0)
[2019-05-09 06:46] LABS: THYROID STIMULATING HORMONE 15.549 uIU/mL (0.358-3.74)
--- NOTE | 2019-05-09 07:30 | NUR ---
MAGNETO REPAIRER AM NOTES RECEIVE BEDSIDE REPORT, PT IN BED, AAO X2, WITH PERIODS OF CONFUSION, WITH COGNITIVE DELAY IN FOLLOWING INSTRUCTIONS, AND NEEDS TO BE REPEATED, ON 2L O2 VIA NASAL CANULA, NO SOB, NOT IN DISTRESS, SR HR 76 ON TELE MONITOR. DENIES PAIN OR DISCOMFORT, RT AC WITH NS AT 40 ML/HR INFUSING WELL, SITE CLEAR, CARDIAC DIET, SEE NURSING FLOWSHEET FOR SKIN ISSUES. BRP WITH ASSIST, SAFETY MEASURES IN PLACE, CALL LIGHT WITHIN REACH, WILL MONITOR CLOSELY.
[2019-05-09] MEDS: Magnesium 1GM/D5W 100ML PREMIX 100 ML IV SCH ×2 (08:58→10:41)
[2019-05-09] MEDS: LEVOTHYROXINE SODIUM 25 MCG TABLET PO SCH (08:58)
[2019-05-09] MEDS: AMIODARONE HCL 200 MG TABLET PO SCH (08:59)
[2019-05-09] MEDS: CARVEDILOL 6.25 MG TABLET PO SCH ×2 (08:59→16:58)
[2019-05-09] MEDS: ASPIRIN 81 MG TAB.CHEW PO SCH (08:59)
[2019-05-09] MEDS: ATORVASTATIN 40 MG TABLET GT SCH (08:59)
--- NOTE | 2019-05-09 09:30 | NUR ---
HEARING AIDE TECHNICIAN NOTES AM CARE AND DUE MEDS GIVEN
[2019-05-09] MEDS ORDERED: MAGN400O6 PO (12:05)
[2019-05-09] MEDS ORDERED: DILT360C28 PO (12:05)
[2019-05-09] MEDS ORDERED: PANT40TA2 PO (12:05)
[2019-05-09] MEDS ORDERED: DIGO125T PO (12:05)
[2019-05-09] MEDS ORDERED: FURO-145 PO (12:05)
[2019-05-09] MEDS ORDERED: ACET-868 PO (12:05)
[2019-05-09] MEDS ORDERED: POTA10TA15 PO (12:05)
[2019-05-09] MEDS ORDERED: LEVE250T2 PO (12:05)
[2019-05-09] MEDS ORDERED: SPIR25TA PO (12:05)
[2019-05-09] MEDS ORDERED: RIVA10TA PO (12:05)
[2019-05-09] MEDS ORDERED: MODA100T14 PO (12:05)
[2019-05-09] MEDS ORDERED: LACT10SO PO (12:05)
[2019-05-09] MEDS ORDERED: POLY17PO4 PO (12:05)
[2019-05-09] MEDS ORDERED: VALS80TA2 PO (12:05)
[2019-05-09] MEDS ORDERED: FURO-144 PO (12:05)
[2019-05-09] MEDS ORDERED: POTA20TA83 PO (12:05)
[2019-05-09] MEDS ORDERED: CLON0.5T PO (12:05)
[2019-05-09] MEDS ORDERED: BISA10SU11 RC (12:05)
[2019-05-09] MEDS ORDERED: CLON0.3P TD (12:05)
--- NOTE | 2019-05-09 12:06 | NUR ---
TALLOW PUMPER/MED RECON UPDATED MED-RECON ENTERED. PRIMARY RN AWARE AND TO NOTIFY MD FOR SHARONA.
[2019-05-09] MEDS: PANTOPRAZOLE 40 MG TABLET.DR PO SCH (15:01)
[2019-05-09] MEDS: clonazePAM 0.5 MG TABLET PO SCH ×2 (15:02→16:57)
[2019-05-09] MEDS: FUROSEMIDE 40 MG TABLET PO SCH (15:02)
[2019-05-09] MEDS: POLYETHYLENE GLYCOL 3350 17 GM POWD.PACK PO SCH (15:02)
[2019-05-09] MEDS: VALSARTAN 80 MG TABLET PO SCH (15:03)
[2019-05-09] MEDS: DILTIAZEM HCL CD 180 MG PO SCH (15:03)
[2019-05-09] MEDS: SPIRONOLACTONE 25 MG TABLET PO SCH (15:03)
[2019-05-09] MEDS: LEVETIRACETAM (250 MG) 250 MG TABLET PO SCH (15:05)
[2019-05-09] MEDS: LACTULOSE 10 G/15 ML UDC (PYXIS) PO SCH (15:05)
[2019-05-09] MEDS: RIVAROXABAN 10 MG TABLET PO SCH (16:59)
--- NOTE | 2019-05-09 18:25 | NUR ---
GENERAL ACTIVITIES THERAPIST CLOSING NOTES PATIENT MADE COMFORTABLE, AAO X2, WITH PERIODS OF CONFUSION, WITH COGNITIVE DELAY IN FOLLOWING INSTRUCTIONS, AND NEEDS TO BE REPEATED, ON 2L O2 VIA NASAL CANULA, ON AND OFF. NO SOB, NOT IN DISTRESS, SR HR 70s ON TELE MONITOR. DENIES PAIN OR DISCOMFORT, RT AC WITH NS AT 40 ML/HR INFUSING WELL, SITE CLEAR, CARDIAC DIET, BRP WITH ASSIST, SAFETY MEASURES IN PLACE, CALL LIGHT WITHIN REACH, ALL NEEDS MET. WILL ENDORSE TO NEXT SHIFT FOR SHARONA.
--- NOTE | 2019-05-09 19:46 | NUR ---
LITHOGRAPHIC PRESS OPERATOR CLOSING NOTES: PT IN BED, PT IN BED, AO X2, W NO ACUTE DISTRESS NOTED. , WITH COGNITIVE DELAY ENDORESED AND NOTED ON ASSESSMENT. SATTING AT 96 PERCENT, ON 2L O2 VIA NASAL CANULA, NO SOB, NOT IN DISTRESS, SR ON TELE MONITOR. DENIES PAIN OR DISCOMFORT, RT AC WITH NS AT 40 ML/HR INFUSING WELL, SITE CLEAR, S. BRP WITH ASSIST, SAFETY MEASURES IN PLACE, CALL LIGHT WITHIN REACH, WILL MONITOR CLOSELY AND CARRY OUT PLAN OF CARE..
[2019-05-09] MEDS: DOCUSATE SODIUM 100 MG CAPSULE PO SCH (21:16)
--- NOTE | 2019-05-09 23:55 | NUR ---
patient recieved from another rn for further care,report pamella
--- NOTE | 2019-05-09 23:57 | NUR ---
ENDORSED PT TO TAWANDA.
--- NOTE | 2019-05-10 01:23 | NUR ---
patient is asleep.on o2 at 2l nasal cannula. no complaints made
[2019-05-10 06:28] LABS: BASOPHILS % (AUTO) 0.6 % (0.0-2.0); EOSINOPHILS % (AUTO) 3.3 % (0.0-6.0); HEMATOCRIT 31 % (39-51); HEMOGLOBIN 10.4 g/dL (13.5-17.5); LYMPHOCYTES # (AUTO) 1.2 /CMM (0.8-4.8); MEAN CORPUSCULAR HGB CONC 34 g/dl (31.0-36.0); MEAN CORPUSCULAR VOLUME 90 fL (80-96); MONOCYTES # (AUTO) 0.4 /CMM (0.1-1.30); MONOCYTES % (AUTO) 9.7 % (2.0-12.0); NEUTROPHILS # (AUTO) 2.8 /CMM (1.8-8.9); NEUTROPHILS % (AUTO) 61.4 % (43.0-81.0); PLATELET COUNT (AUTO) 180 /CMM (150-450); RED BLOOD CELL COUNT(AUTO) 3.47 MIL/uL (4.5-6.0); WHITE BLOOD COUNT (AUTO) 4.6 K/uL (4.3-11.0)
[2019-05-10 06:50] LABS: CALCIUM, SERUM 8.3 mg/dL (8.5-10.1); CREATININE 1.1 mg/dL (0.6-1.3); PHOSPHORUS 3.9 mg/dL (2.5-4.9); POTASSIUM 3.8 mmol/L (3.5-5.1)
--- NOTE | 2019-05-10 07:30 | NUR ---
SLOTS MANAGER OPENING NOTES RECEIVED BEDSIDE REPORT FROM PM NURSE.PT IN BED AXOX4 WITH PERIODS OF CONFUSION.NOT FOLLOWING COMMANDS ALL THE TIME.WITH COGNITIVE DELAY IN FOLLOWING INSTRUCTIONS. AND NEEDS TO BE REPEATED ALL INSTRUCTIONS.ON 2L O2 VIA NASAL CANULA. NO SOB, NOT IN DISTRESS.ON TELE MONITOR SR HR 62 ON TELE MONITOR. DENIES PAIN OR DISCOMFORT.IV ON RT AC WITH NS AT 40 ML/HR INFUSING WELL.SITE INTACT.ON CARDIAC DIET. BRP WITH ASSIST, SAFETY AND ASPIRATION MEASURES IN PLACE, CALL LIGHT WITHIN REACH, BED ALARM ON.WILL CONTINUE TO MONITOR.
[2019-05-10] MEDS: PANTOPRAZOLE 40 MG TABLET.DR PO SCH (07:47)
[2019-05-10 08:00] VITALS: BP 157/74
[2019-05-10] MEDS: DILTIAZEM HCL CD 180 MG PO SCH (08:39)
[2019-05-10] MEDS: LACTULOSE 10 G/15 ML UDC (PYXIS) PO SCH (08:39)
[2019-05-10] MEDS: ATORVASTATIN 40 MG TABLET GT SCH (08:39)
[2019-05-10] MEDS: LEVOTHYROXINE SODIUM 25 MCG TABLET PO SCH (08:39)
[2019-05-10] MEDS: ASPIRIN 81 MG TAB.CHEW PO SCH (08:40)
[2019-05-10] MEDS: AMIODARONE HCL 200 MG TABLET PO SCH (08:40)
[2019-05-10] MEDS: FUROSEMIDE 40 MG TABLET PO SCH (08:40)
[2019-05-10] MEDS: SPIRONOLACTONE 25 MG TABLET PO SCH (08:40)
[2019-05-10] MEDS: LEVETIRACETAM (250 MG) 250 MG TABLET PO SCH (08:40)
[2019-05-10] MEDS: clonazePAM 0.5 MG TABLET PO SCH ×2 (08:40→17:19)
[2019-05-10] MEDS: POLYETHYLENE GLYCOL 3350 17 GM POWD.PACK PO SCH (08:40)
[2019-05-10] MEDS: VALSARTAN 80 MG TABLET PO SCH (09:58)
[2019-05-10] MEDS: CARVEDILOL 6.25 MG TABLET PO SCH ×2 (09:58→17:20)
[2019-05-10 12:00] VITALS: BP 15/77
[2019-05-10] MEDS: DIGOXIN 0.125 MG TABLET PO SCH (13:32)
[2019-05-10 16:00] VITALS: BP 132/61
[2019-05-10] MEDS: RIVAROXABAN 10 MG TABLET PO SCH (17:19)
--- NOTE | 2019-05-10 19:50 | NUR ---
MS RN CLOSING NOTE SEEN BY GUERO YIP NOON TIME,UPDATED ABOUT PATIENT CONDITION.GOT NEW ORDERS.MADE AWARE ABOUT CONCERN FOR COREG DOSING.NNO NOW.CONTINUE SAME.O2 SAT AT ROOM AIR GOES TO 91%.STILL CONTINUING O2 2L .MRSA POSITIVE.RESULT RELAYED TO GUERO YIP.GOT NEW ORDERS.ENDORSED TO PM NURSE FOR SHARONA,
[2019-05-10 20:00] VITALS: BP 132/68
--- NOTE | 2019-05-10 20:00 | NUR ---
MS RN NOTE PT IN BED ASLEEP, AROUSABLE. A/O X 2 CONFUSED AT TIMES. IN ISOLATION FOR MRSA NARES. ISOLATION PRECAUTIONS TAKEN. NO SOB, NO DISTRESS OR DISCOMFORT NOTED. DENIES PAIN. RAC WITH #20 G S/L INTACT AND PATENT. ALL NEEDS ATTENDED. SIDE RAILS UP X 3 AND CALL LIGHT WITHIN REACH. VSS. CONTINUE TO MONITOR HIM.
[2019-05-10 20:40] LABS: BILIRUBIN,URINE NEGATIVE (NEGATIVE); BLOOD, URINE NEGATIVE Ery/uL (NEGATIVE); COLOR,URINE YELLOW (YELLOW); KETONES,URINE NEGATIVE (NEGATIVE); LEUKOCYTE ESTERASE ,URINE NEGATIVE (NEGATIVE); NITRITE, URINE NEGATIVE (NEGATIVE); PH,URINE 5.5 (5.0-8.0); PROTEIN,URINE NEGATIVE (NEGATIVE); UGLUCOSE NEGATIVE (NEGATIVE); UROBILINOGEN,URINE 0.2 EU/dL (0.2)
[2019-05-10 20:45] LABS: APPEARANCE,URINE CLEAR (CLEAR)
[2019-05-10] MEDS: MUPIROCIN OINT 2% 22 GM TUBE SCH (21:06)
[2019-05-10] MEDS ORDERED: DOCUSATE SODIUM 250 MG CAPSULE PO ONE (21:32)
[2019-05-10] MEDS: DOCUSATE SODIUM 100 MG CAPSULE PO SCH (21:35)
[2019-05-11 04:00] VITALS: BP 168/81
--- NOTE | 2019-05-11 06:48 | NUR ---
MS RN NOTE PT IN BED ASLEEP, AROUSABLE. NO DISTRESS OR DISCOMFORT NOTED. SIDE RAILS UP X 2 AND CALL LIGHT WITHIN REACH. WILL ENDORSE TO DAY SHIFT NURSE FOR CONTINUE TO CARE.
--- NOTE | 2019-05-11 07:48 | NUR ---
RN NOTE: PATIENT RECEIVED ALERT AWAKE ORIENTED X 2, FORGETFUL/CONFUSION. ON O2 THERAPY VIA NC, NO BREATHING DISTRESS NOTED. ABLE TO WALK WITH 1 PERSON ASSIST. SAFETY MEASURES OBSERVED. BED ALARM ON. ENCOURAGE PATIENT TO USE CALL LIGHT FOR ASSISTANCE. CONTINUE WITH PLAN OF CARE.
[2019-05-11 07:57] LABS: BASOPHILS % (AUTO) 0.5 % (0.0-2.0); EOSINOPHILS % (AUTO) 3.7 % (0.0-6.0); HEMATOCRIT 32 % (39-51); HEMOGLOBIN 11.2 g/dL (13.5-17.5); LYMPHOCYTES # (AUTO) 0.9 /CMM (0.8-4.8); LYMPHOCYTES % (AUTO) 16.4 % (20.0-44.0); MEAN CORPUSCULAR HGB CONC 35 g/dl (31.0-36.0); MEAN CORPUSCULAR VOLUME 89 fL (80-96); MONOCYTES # (AUTO) 0.5 /CMM (0.1-1.30); MONOCYTES % (AUTO) 8.3 % (2.0-12.0); NEUTROPHILS # (AUTO) 4.1 /CMM (1.8-8.9); NEUTROPHILS % (AUTO) 71.1 % (43.0-81.0); PLATELET COUNT (AUTO) 196 /CMM (150-450); RED BLOOD CELL COUNT(AUTO) 3.64 MIL/uL (4.5-6.0); WHITE BLOOD COUNT (AUTO) 5.8 K/uL (4.3-11.0)
[2019-05-11 08:00] VITALS: BP 150/82
[2019-05-11 08:06] LABS: CALCIUM, SERUM 8.8 mg/dL (8.5-10.1); CREATININE 1.1 mg/dL (0.6-1.3); MAGNESIUM 1.7 mg/dL (1.8-2.4); PHOSPHORUS 3.2 mg/dL (2.5-4.9); POTASSIUM 3.4 mmol/L (3.5-5.1)
[2019-05-11] MEDS: POLYETHYLENE GLYCOL 3350 17 GM POWD.PACK PO SCH ×2 (09:00→10:06)
[2019-05-11] MEDS ORDERED: CLONIDINE HCL 0.3 MG/24H PTWK 1 EA PATCH TD SCH (09:00)
[2019-05-11] MEDS: LACTULOSE 10 G/15 ML UDC (PYXIS) PO SCH (10:06)
[2019-05-11] MEDS: DILTIAZEM HCL CD 180 MG PO SCH (10:06)
[2019-05-11] MEDS: ATORVASTATIN 40 MG TABLET GT SCH (10:07)
[2019-05-11] MEDS: AMIODARONE HCL 200 MG TABLET PO SCH (10:07)
[2019-05-11] MEDS: LEVETIRACETAM (250 MG) 250 MG TABLET PO SCH (10:07)
[2019-05-11] MEDS: ASPIRIN 81 MG TAB.CHEW PO SCH (10:08)
[2019-05-11] MEDS: SPIRONOLACTONE 25 MG TABLET PO SCH (10:08)
[2019-05-11] MEDS: FUROSEMIDE 40 MG TABLET PO SCH (10:08)
[2019-05-11] MEDS: VALSARTAN 80 MG TABLET PO SCH (10:08)
[2019-05-11] MEDS: LEVOTHYROXINE SODIUM 75 MCG TABLET PO SCH (10:08)
[2019-05-11] MEDS: PANTOPRAZOLE 40 MG TABLET.DR PO SCH (10:09)
[2019-05-11] MEDS: clonazePAM 0.5 MG TABLET PO SCH ×2 (10:10→18:06)
[2019-05-11] MEDS: CARVEDILOL 6.25 MG TABLET PO SCH (10:10)
[2019-05-11] MEDS: MUPIROCIN OINT 2% 22 GM TUBE SCH ×2 (10:25→21:49)
[2019-05-11] MEDS: POTASSIUM CHLORIDE 20 MEQ TAB.PRT.SR PO SCH ×2 (12:00→13:21)
[2019-05-11] MEDS: Magnesium 1GM/D5W 100ML PREMIX 100 ML IV SCH ×2 (13:21→14:49)
[2019-05-11] MEDS: DIGOXIN 0.125 MG TABLET PO SCH (13:21)
[2019-05-11] MEDS ORDERED: POTASSIUM CHLORIDE 20 MEQ TAB.PRT.SR PO SCH (14:00)
[2019-05-11 16:00] VITALS: BP 120/60
--- NOTE | 2019-05-11 16:38 | NUR ---
RN NOTE; PATIENT REMAINS ALERT AWAKE ORIENTED X 2 WITH EPISODES OF CONFUSION & FORGETFULNESS. NO SIGNIFICANT CHANGES NOTED DURING SHIFT. SAFETY MEASURES OBSERVED. CORRINA Whitman N.P MADE AWARE THAT JOAO WANTS TO TALK TO PRIMARY HOSPITALIST REGARDING DISCHARGE. CONTINUE WITH PLAN FO CARE.
[2019-05-11] MEDS: RIVAROXABAN 10 MG TABLET PO SCH (18:05)
[2019-05-11] MEDS: CARVEDILOL 12.5 MG TABLET PO SCH (18:06)
--- NOTE | 2019-05-11 19:10 | NUR ---
RN M/S NOTE PATIENT IS AOX2, ON ROOM AIR, NO PAIN NOTED, NO S/SX OF RESPIRATORY OR CARDIAC DISTRESS, SKIN KEPT CLEAN AND DRY, RAC #20G IV SL, PATENT FLUSHING WELL, SKIN KEPT CLEAN AND DRY, SAFETY MAINTAINED AT ALL TIMES, BED IN LOW, LOCKED POSITION, CALL LIGHT WITHIN REACH, WILL CONTINUE TO MONITOR FOR ANY CHANGES IN CONDITION.
[2019-05-11 20:00] VITALS: BP 122/53
[2019-05-11] MEDS ORDERED: DOCUSATE SODIUM 250 MG CAPSULE PO SCH (22:00)
[2019-05-12 04:00] VITALS: BP 149/72
[2019-05-12 07:14] LABS: BASOPHILS % (AUTO) 0.7 % (0.0-2.0); EOSINOPHILS % (AUTO) 4.1 % (0.0-6.0); HEMATOCRIT 31 % (39-51); HEMOGLOBIN 10.5 g/dL (13.5-17.5); LYMPHOCYTES # (AUTO) 1.3 /CMM (0.8-4.8); LYMPHOCYTES % (AUTO) 24.4 % (20.0-44.0); MEAN CORPUSCULAR HGB CONC 34 g/dl (31.0-36.0); MEAN CORPUSCULAR VOLUME 89 fL (80-96); MONOCYTES # (AUTO) 0.5 /CMM (0.1-1.30); MONOCYTES % (AUTO) 9.5 % (2.0-12.0); NEUTROPHILS # (AUTO) 3.3 /CMM (1.8-8.9); NEUTROPHILS % (AUTO) 61.3 % (43.0-81.0); PLATELET COUNT (AUTO) 194 /CMM (150-450); RED BLOOD CELL COUNT(AUTO) 3.44 MIL/uL (4.5-6.0); WHITE BLOOD COUNT (AUTO) 5.4 K/uL (4.3-11.0)
[2019-05-12 07:19] LABS: CALCIUM, SERUM 8.6 mg/dL (8.5-10.1); CREATININE 1.1 mg/dL (0.6-1.3); PHOSPHORUS 3.6 mg/dL (2.5-4.9); POTASSIUM 3.5 mmol/L (3.5-5.1)
[2019-05-12] MEDS: PANTOPRAZOLE 40 MG TABLET.DR PO SCH (07:51)
[2019-05-12] MEDS: LEVOTHYROXINE SODIUM 75 MCG TABLET PO SCH (07:51)
[2019-05-12 08:00] VITALS: BP 140/70
--- NOTE | 2019-05-12 08:20 | NUR ---
MS RN OPENING NOTE: PATIENT RECEIVED A/O X 2, FORGETFUL/CONFUSION. NO SOB OR ACUTE DISTRESS NOTED. AMBULATORY WITH ASSIST. RAC IV #20 INTACT AND PATENT. PATIENT CLEAN, DRY AND COMFORTABLE. SAFETY MEASURES OBSERVED. BED ALARM ON. CALL LIGHT WITHIN REACH. WILL CONTINUE WITH PLAN OF CARE.
[2019-05-12] MEDS: ASPIRIN 81 MG TAB.CHEW PO SCH (09:43)
[2019-05-12] MEDS: ATORVASTATIN 40 MG TABLET GT SCH (09:43)
[2019-05-12] MEDS: FUROSEMIDE 40 MG TABLET PO SCH (09:43)
[2019-05-12] MEDS: CARVEDILOL 12.5 MG TABLET PO SCH ×2 (09:44→17:08)
[2019-05-12] MEDS: POLYETHYLENE GLYCOL 3350 17 GM POWD.PACK PO SCH (09:45)
[2019-05-12] MEDS: DILTIAZEM HCL CD 180 MG PO SCH (09:45)
[2019-05-12] MEDS: clonazePAM 0.5 MG TABLET PO SCH ×2 (09:45→17:09)
[2019-05-12] MEDS: AMIODARONE HCL 200 MG TABLET PO SCH (09:46)
[2019-05-12] MEDS: SPIRONOLACTONE 25 MG TABLET PO SCH (09:46)
[2019-05-12] MEDS: LACTULOSE 10 G/15 ML UDC (PYXIS) PO SCH (09:47)
[2019-05-12] MEDS: VALSARTAN 80 MG TABLET PO SCH (09:47)
[2019-05-12] MEDS: LEVETIRACETAM (250 MG) 250 MG TABLET PO SCH (09:47)
[2019-05-12] MEDS: MUPIROCIN OINT 2% 22 GM TUBE SCH (09:48)
[2019-05-12] MEDS: DIGOXIN 0.125 MG TABLET PO SCH (13:09)
[2019-05-12] MEDS ORDERED: MUPI22OI7 (13:58)
[2019-05-12] MEDS ORDERED: CARV12.52 PO (13:58)
[2019-05-12] MEDS ORDERED: LEVO75TA PO (13:58)
[2019-05-12 16:00] VITALS: BP 110/64
[2019-05-12 17:08] VITALS: BP 110/64
[2019-05-12] MEDS: RIVAROXABAN 10 MG TABLET PO SCH (17:09)
--- NOTE | 2019-05-12 19:39 | NUR ---
MS PAINTER SPRAY NOTE PATIENT DISCHARGED PER MD TO HOME. PATIENT TAKEN TO EXIT VIA WHEELCHAIR, PATIENT TOOK PATIENT BY CAR. PATIENT CLEAN AND DRY IN HOSPITAL GOWN AND DIAPER D/T CLOTHING BEING URINE SOAKED. PATIENT HAD CLOTHES BUT COULD NOT LEAVE HER CAR. RN OFFERED TO RETURN TO ROOM WITH CLOTHES BUT PATIENT SAID IT WAS OK TO TAKE HIM IS. PATIENT A/O X 3, NO SOB OR ACUTE DISTRESS NOTED. AMBULATORY W/ ASSIST. IV SL REMOVED, NO MONITORS ON PATIENT. BELONGINGS LIST COMPLETED. ALL DISCHARGE PAPERWORK INCLUDING MEDICATION LIST GIVEN TO PATIENT . EDUCATION COMPLETED. PATIENT DISCHARGED W/O INCIDENT.
--- NOTE | 2019-05-14 08:04 | NUR ---
ECHO REPORT IS DONE AWAITING FOR REPORT TO CROSS OVER TO [facility].
== END 2019-05-12 19:00 | disposition home health service (06) | DRG 469 ==
LOC: ER 21:03 → TELE1 23:30 → MEDSG1 05-10 11:30
PROVIDERS: ADMIT Nurse Practitioner Acute Care; ATTEND Registered Nurse
DX: N17.0 Acute kidney failure with tubular necrosis (principal); I21.A1 Myocardial infarction type 2; G93.1 Anoxic brain damage, not elsewhere classified; I11.0 Hypertensive heart disease with heart failure; D68.59 Other primary thrombophilia; I50.22 Chronic systolic (congestive) heart failure; E83.42 Hypomagnesemia; I48.2 Chronic atrial fibrillation; E03.9 Hypothyroidism, unspecified; I25.10 Atherosclerotic heart disease of native coronary artery without angina pectoris; F41.9 Anxiety disorder, unspecified; Z79.82 Long term (current) use of aspirin; Z95.1 Presence of aortocoronary bypass graft; D63.8 Anemia in other chronic diseases classified elsewhere; Z95.2 Presence of prosthetic heart valve; E87.6 Hypokalemia; Z22.322 Carrier or suspected carrier of Methicillin resistant Staphylococcus aureus
CPT/HCPCS: 36415; 80048-TC; 80061-TC; 80076-TC; 80162-TC; 80305; 81000-TC; 82140-TC; 83735-TC; 84100-TC; 84439-TC; 84443-TC; 84484-TC; 85025-TC; 85730-TC; 87081-TC; 93307-TC; 97116-TC; 97530-TC; G0378; J3475; J7030; J7050